=== PATIENT | female | born 1955 | race Caucasian/White ===

== ENCOUNTER 2017-06-11 20:11 | Inpatient (IN) | payer BC, OTHER ==
[~2017-06-11] VITALS: Ht 152.4 cm; Wt 76.9 kg
[2017-06-11] VITALS (11 sets, daily range): BP systolic 133–223; BP diastolic 67–141; PULSE 55–75; RESP 16–20; TEMP 97.8; O2SAT 97–100
[~2017-06-11 20:11] MED LIST: BUPR-86 PO; CHOL1CAP6 PO; DICL75 PO; DOXY100T PO; [UNRECOGNIZED DRUG - CODE] PO
[2017-06-11] MEDS ORDERED: IOHEXOL 350 MG/ML 10 ML VIAL (for RAD DIAG) IVCONTRAST ONE (20:12)
[2017-06-11] MEDS ORDERED: BUPR100T4 PO (20:45)
[2017-06-11] MEDS ORDERED: fish oil PO (20:45)
[2017-06-11] MEDS ORDERED: VITA100064 PO (20:45)
[2017-06-11] MEDS ORDERED: SPIR25TA PO (20:45)
[2017-06-11] MEDS ORDERED: ALUMINUM/MAGNESIUM/SIMETH 30 ML CUP PO ONE (21:00)
[2017-06-11] MEDS ORDERED: SODIUM CHLORIDE 0.9% FLUSH 10 ML FLUSH IVF PRN (21:00)
[2017-06-11] MEDS ORDERED: LIDOCAINE VISCOUS 2% SOLN 15 ML UDC SWISH-SWAL ONE (21:00)
[2017-06-11 21:23] LABS: AUTOMATED NEUTROPHIL # 4.8 TH/MM3 (1.8-7.7); BASOPHIL # 0.1 TH/MM3 (0-0.2); BASOPHIL % 0.5 % (0.0-2.0); EOSINOPHIL # 0.3 TH/MM3 (0-0.4); EOSINOPHIL % 2.8 % (0.0-4.0); HEMATOCRIT 36.9 % (35.0-46.0); HEMOGLOBIN 12.7 GM/DL (11.6-15.3); LYMPH % 39.9 % (9.0-44.0); LYMPHOCYTE # 4.1 TH/MM3 (1.0-4.8); MEAN CELL VOLUME 92.8 FL (80.0-100.0); MEAN CORPUSCULAR HEMOGLOBIN 31.9 PG (27.0-34.0); MEAN CORPUSCULAR HGB CONC 34.3 % (32.0-36.0); MEAN PLATELET VOLUME 7.6 FL (7.0-11.0); MONO % 10.1 % (0.0-8.0); NEUT % 46.7 % (16.0-70.0); PLATELET COUNT 298 TH/MM3 (150-450); RED BLOOD COUNT 3.97 MIL/MM3 (4.00-5.30); WHITE BLOOD COUNT 10.3 TH/MM3 (4.0-11.0)
--- NOTE | 2017-06-11 21:25 | RADRPT ---
EXAM DATE/TIME: 06/11/2017 21:06 [facility] COMPARISON: No previous studies available for comparison. INDICATIONS : Chest pain. MEDICAL HISTORY : None. SURGICAL HISTORY : None. ENCOUNTER: Initial ACUITY: 1 day PAIN SCORE: 6/10 LOCATION: Bilateral chest FINDINGS: A single view of the chest demonstrates the lungs to be symmetrically aerated without evidence of mas s, infiltrate or effusion. The cardiomediastinal contours are unremarkable. Osseous structures are intact. CONCLUSION: No acute disease. Sergey Reis MD on June 11, 2017 at 21:22 Board Certified Radiologist. This report was verified electronically.
[2017-06-11 21:40] LABS: ALT (GPT) 24 U/L (10-53); AST (GOT) 21 U/L (15-37); BLOOD UREA NITROGEN 18 MG/DL (7-18); CALCIUM 8.8 MG/DL (8.5-10.1); CHLORIDE 106 MEQ/L (98-107); CREATININE 1.12 MG/DL (0.50-1.00); GLOMERULAR FILTRATION RATE 50 ML/MIN (>89); GLUCOSE,RANDOM 100 MG/DL (74-106); LIPASE 210 U/L (73-393); SODIUM (NA) 138 MEQ/L (136-145)
[2017-06-11 21:44] LABS: ALKALINE PHOSPHATASE 93 U/L (45-117); TOTAL BILIRUBIN ADULT 0.2 MG/DL (0.2-1.0); TOTAL PROTEIN 7.4 GM/DL (6.4-8.2); TROPONIN I 0.18 NG/ML (0.02-0.05)
[2017-06-11 21:50] LABS: INTERNATIONAL NORMALIZED RATIO 1.1 RATIO; PROTHROMBIN TIME - PATIENT 10.7 SEC (9.8-11.6)
[2017-06-11] MEDS ORDERED: LORazepam 2 MG/ML VIAL IV PUSH ONE (22:15)
[2017-06-11] MEDS ORDERED: LABETALOL HCL 100 MG/20 ML VIAL IV PUSH ONE (22:15)
[2017-06-11] MEDS ORDERED: ONDANSETRON HCL 4 MG/2 ML VIAL IV PUSH ONE ×2 (22:15→23:30)
[2017-06-11] MEDS ORDERED: MORPHINE SULFATE 2 MG/ML INJ IV PUSH ONE (22:15)
[2017-06-11 22:30] LABS: D-DIMER 0.39 MG/L FEU (0.00-0.50)
[2017-06-11] MEDS ORDERED: NITROGLYCERIN 2% OINT 1 GM PACKET TOPICAL ONE (22:30)
[2017-06-11] MEDS ORDERED: PANTOPRAZOLE SODIUM 40 MG VIAL IV PUSH ONE (23:45)
[2017-06-12] VITALS (21 sets, daily range): BP systolic 90–136; BP diastolic 51–77; PULSE 50–77; RESP 18–20; TEMP 98.3–98.7; O2SAT 97–99
--- NOTE | 2017-06-12 00:31 | RADRPT ---
EXAM DATE/TIME: 06/11/2017 23:38 [facility] COMPARISON: No previous studies available for comparison. INDICATIONS : Chest pain with vomiting. IV CONTRAST: 95 cc Omnipaque 350 (iohexol) IV RADIATION DOSE: 16.98 CTDIvol (mGy) MEDICAL HISTORY : Gastroesophageal reflux disease. SURGICAL HISTORY : section. ENCOUNTER: Initial ACUITY: 1 day PAIN SCALE: 4/10 LOCATION: lower chest abdomen TECHNIQUE: Volumetric scanning was performed using a multi-row detector CT scanner. The data was post processed with a variety of visualization algorithms including full volume maximum intensity projection, multi -planar sliding thin slab reformation, curved planar reformation, and surface rendering techniques. Using automated exposure control and adjustment of the mA and/or kV according to patient size, radiat ion dose was kept as low as reasonably achievable to obtain optimal diagnostic quality images. DICOM format image data is available electronically for review and comparison. FINDINGS: LUNGS: Minimal bibasilar groundglass opacities, likely atelectasis. No concerning pulmonary nodule is visua lized. No pleural fluid is present. MEDIASTINUM: No abnormally enlarged lymph nodes by CT criteria. Coronary artery calcifications. Heart is otherwise unremarkable without pericardial effusion. No axillary or hilar abnormalities are identified. Pulmon shay arteries are visualized to the proximal segmental level without evidence for intraluminal filling defect ABDOMEN: The liver and spleen are free of focal defects. Multiple gallstones in the gallbladder which otherwis e appears unremarkable by CT. The pancreas demonstrate no abnormality. The adrenal glands are normal. The kidneys demonstrate no evidence of solid renal mass or hydronephrosis. No free fluid or abdomina l masses are identified. No para-aortic adenopathy is seen. Small fat containing periumbilical and ab dominal wall hernia. PELVIS: No evidence of free fluid or pelvic mass. No abnormally enlarged inguinal or retroperitoneal lymph no jonh are present. The bladder is unremarkable. THORACIC AORTA: The thoracic aortic root is normal. Bovine type two vessel arch anatomy. There is no evidence of aneu rysm or dissection. ABDOMINAL AORTA: The aorta is normal in caliber without aneurysm or dissection. The renal arteries are patent bilater ally. There are duplicated right-sided renal arteries. The proximal celiac and superior mesenteric a rteries are patent and normal in diameter. PELVIC VESSELS: The internal iliac and external iliac vessels are patent without aneurysm or stenosis. CONCLUSION: 1. Normal aorta without evidence for aneurysm or dissection. 2. No evidence of pulmonary embolism to the proximal segmental level. 3. Minimal bibasilar groundglass opacities, likely atelectasis. 4. Coronary calcifications. 5. Cholelithiasis. 6. Small fat containing anterior abdominal periumbilical hernia. Patrick Montiel MD on June 12, 2017 at 0:24 Board Certified Radiologist. This report was verified electronically.
--- NOTE | 2017-06-12 00:40 | HHI.HP ---
HPI Service Critical Care Medicine Primary Care Physician Ela Beverly MD Admission Diagnosis Acute [place], hemoptysis Diagnosis: Travel History International Travel<30 Days: No Contact w/Intl Traveler <30 Da: No Traveled to Known Affected Are: No History of Present Illness 62-year-old female with no history significant of coronary artery disease presents with chest pain, per patient initially the elephant was sitting on her chest without radiation, later in the emergency department where she felt improving, she developed sudden onset of crushing chest pain radiating to her shoulders, she became diaphoretic, pale and hypotensive. The EKG shows diffuse ST elevations and the thermal cutter hand test conductor was notified for STEMI alert. She was treated with morphine, Ativan, nitroglycerin, beta mary ellen with improvement of her symptoms. However shortly after she vomited about half cup of fresh bright red blood. The thermal cutter hand on-call canceled a STEMI alert and patient is admitted to ICU with conservative management. Review of Systems Constitutional: COMPLAINS OF: Diaphoretic episodes, DENIES: Fatigue, Fever, Weight gain, Weight loss, Chills, Dizziness, Change in appetite, Night Sweats Endocrine: DENIES: Abnorml menstrual pattern, Heat/cold intolerance, Polydipsia , Polyuria, Polyphagia Eyes: DENIES: Blurred vision, Diplopia, Eye inflammation, Eye pain, Vision loss , Photosensitivity, Double Vision Ears, nose, mouth, throat: DENIES: Tinnitus, Hearing loss, Vertigo, Nasal discharge, Oral lesions, Throat pain, Hoarseness, Ear Pain, Running Nose, Epistaxis, Sinus Pain, Toothache, Odynophagia Respiratory: COMPLAINS OF: Shortness of breath, DENIES: Apneas, Cough, Snoring , Wheezing, Hemoptysis, Sputum production Cardiovascular: COMPLAINS OF: Chest pain, DENIES: Palpitations, Syncope, Dyspnea on Exertion, PND, Lower Extremity Edema, Orthopnea, Claudication Gastrointestinal: DENIES: Abdominal pain, Black stools, Bloody stools, Constipation, Diarrhea, Nausea, Vomiting, Difficulty Swallowing, Anorexia Genitourinary: DENIES: Abnormal vaginal bleeding, Dysmenorrhea, Dyspareunia, Sexual dysfunction, Urinary frequency, Urinary incontinence, Urgency, Hematuria , Dysuria, Nocturia, Vaginal discharge Musculoskeletal: DENIES: Joint pain, Muscle aches, Stiffness, Joint Swelling, Back pain, Neck pain Integumentary: DENIES: Abnormal pigmentation, Pruritus, Rash, Nail changes, Breast masses, Breast skin changes, Nipple discharge Hematologic/lymphatic: DENIES: Bruising, Lymphadenopathy Immunologic/allergic: DENIES: Eczema, Urticaria Neurologic: DENIES: Abnormal gait, Headache, Localized weakness, Paresthesias, Seizures, Speech Problems, Tremor, Poor Balance Psychiatric: DENIES: Anxiety, Confusion, Mood changes, Depression, Hallucinations, Agitation, Suicidal Ideation, Homicidal Ideation, Delusions Past Family Social History Allergies: Coded Allergies: neomycin (Unverified Allergy, Intermediate, RASH, 01/04/17) Past Medical History Depressions/anxiety Past Surgical History Bilateral carpal tunnel syndrome release Arthroscopic surgery of the left knee Tonsillectomy Urethral dilation Colonoscopy 2 Reported Medications Reported Meds & Active Scripts Active Reported [fish oil] 1 Cap PO DAILY Vitamin D3 (Cholecalciferol) 1,000 Unit Tab 1,000 Units PO DAILY Bupropion HCl 100 Mg Tab 150 Mg PO BID Spironolactone 25 Mg Tab 25 Mg PO BIDPC Active Ordered Medications Current Medications Medications (Trade) Dose Ordered Sig/Carlitos Route PRN Reason Start Time Stop Time Status Last Admin Dose Admin Bupropion HCl (Wellbutrin Sr) 150 mg BID PO 06/12/17 09:00 Cholecalciferol (Vitamin D3) 1,000 units DAILY PO 06/12/17 09:00 Spironolactone (Aldactone) 25 mg BIDPC PO 06/12/17 09:00 Sodium Chloride 1,000 ml @ 124 mls/hr Q8H4M IV 06/12/17 00:34 06/12/17 01:55 Sodium Chloride (NS Flush) 2 ml UNSCH PRN IV FLUSH FLUSH AFTER USING IV ACCESS 06/12/17 00:45 Sodium Chloride (NS Flush) 2 ml BID IV FLUSH 06/12/17 09:00 Acetaminophen (Tylenol) 650 mg Q6H PRN PO PAIN 1-5 AND/OR FEVER >101F 06/12/17 00:45 Morphine Sulfate (Morphine Inj) 2 mg Q2H PRN IV PUSH PAIN SCALE 6 TO 10 06/12/17 00:45 Pantoprazole Sodium (Protonix Inj) 40 mg Q12H IV PUSH 06/12/17 01:00 Lorazepam (Ativan Inj) 1 mg Q1H PRN IV PUSH Agitation/Sedation 06/12/17 00:45 06/12/17 03:17 Ondansetron HCl (Zofran Inj) 4 mg Q6H PRN IV PUSH NAUSEA OR VOMITING 06/12/17 00:45 06/12/17 04:09 Zolpidem Tartrate (Ambien) 5 mg HS PRN PO INSOMNIA 06/12/17 00:45 Albuterol/ Ipratropium (Duoneb Neb) 1 ampule Q2HR NEB PRN INH WHEEZING 06/12/17 00:45 Miscellaneous Information 1 Q361D XX 06/12/17 00:45 Chlorhexidine Gluconate (Chlorhexidine 2% Cloth) 3 pack Taper DAILY@04 TOP 06/12/17 04:00 06/08/18 03:59 06/12/17 04:00 Chlorhexidine Gluconate (Chlorhexidine 2% Cloth) 3 pack UNSCH PRN TOP HYGIENIC CARE 06/12/17 00:45 Senna/Docusate Sodium (G[place]-Colace) 1 tab BID PO 06/12/17 09:00 Magnesium Hydroxide (Milk Of Magnesia Liq) 30 ml Q12H PRN PO Mild constipation 06/12/17 00:45 Sennosides (Senokot) 17.2 mg Q12H PRN PO Moderate constipation 06/12/17 00:45 Bisacodyl (Dulcolax Supp) 10 mg DAILY PRN RECTAL SEVERE CONSITIPATION 06/12/17 00:45 Lactulose (Lactulose Liq) 30 ml DAILY PRN PO SEVERE CONSITIPATION 06/12/17 00:45 Metoprolol Tartrate (Lopressor Inj) 2.5 mg Q6H IV PUSH 06/12/17 00:45 06/12/17 01:55 Atorvastatin Calcium (Lipitor) 80 mg DAILY PO 06/12/17 09:00 Labetalol HCl (Trandate Inj) 10 mg Q4H PRN IV PUSH SBP>150, DBP>90 06/12/17 00:45 Pantoprazole Sodium 80 mg/ Sodium Chloride 100 ml @ 10 mls/hr CONTINUOUS IV 06/12/17 02:15 06/12/17 03:17 Family History No family history significant of malignancy Social History Quit smoking 30 years ago, denies alcohol or illicit drug abuse Physical Exam Vital Signs Vital Signs Date Time Temp Pulse Resp B/P (MAP) Pulse Ox O2 Delivery O2 Flow Rate FiO2 06/11/17 23:56 61 20 133/88 (103) 97 Room Air 06/11/17 22:51 55 141/76 (97) 97 Room Air 06/11/17 22:32 61 151/76 (101) 98 Room Air 06/11/17 22:28 56 145/71 (95) 99 06/11/17 22:19 56 147/67 (93) 97 06/11/17 22:13 60 149/70 (96) 06/11/17 22:00 223/141 (168) 06/11/17 21:49 70 20 176/81 (112) 100 Room Air 06/11/17 21:48 100 Room Air 06/11/17 21:48 100 Room Air 06/11/17 20:46 66 18 147/72 (97) 100 Room Air 06/11/17 20:38 Room Air 06/11/17 20:16 97.8 75 16 174/88 (116) 99 Room Air Physical Exam GENERAL: Well-nourished, well-developed patient. SKIN: Warm and dry. HEAD: Normocephalic. EYES: No scleral icterus. No injection or drainage. NECK: Supple, trachea midline. No JVD or lymphadenopathy. CARDIOVASCULAR: Regular rate and rhythm without murmurs, gallops, or rubs. RESPIRATORY: Breath sounds equal bilaterally. No accessory muscle use. GASTROINTESTINAL: Abdomen soft, non-tender, nondistended. MUSCULOSKELETAL: No cyanosis, or edema. BACK: Nontender without obvious deformity. NEURO EXAM: GCS: 15 Mental Status: The patient is alert and oriented to person, place, and time with normal speech. Laboratory Laboratory Tests Test 06/11/17 20:50 06/11/17 23:59 White Blood Count 10.3 Red Blood Count 3.97 Hemoglobin 12.7 Hematocrit 36.9 Mean Corpuscular Volume 92.8 Mean Corpuscular Hemoglobin 31.9 Mean Corpuscular Hemoglobin Concent 34.3 Red Cell Distribution Width 14.0 Platelet Count 298 Mean Platelet Volume 7.6 Neutrophils (%) (Auto) 46.7 Lymphocytes (%) (Auto) 39.9 Monocytes (%) (Auto) 10.1 Eosinophils (%) (Auto) 2.8 Basophils (%) (Auto) 0.5 Neutrophils # (Auto) 4.8 Lymphocytes # (Auto) 4.1 Monocytes # (Auto) 1.0 Eosinophils # (Auto) 0.3 Basophils # (Auto) 0.1 CBC Comment DIFF FINAL Differential Comment Prothrombin Time 10.7 Prothromb Time International Ratio 1.1 Activated Partial Thromboplast Time 28.2 D-Dimer Quantitative (PE/DVT) 0.39 Blood Urea Nitrogen 18 Creatinine 1.12 Random Glucose 100 Total Protein 7.4 Albumin 4.0 Calcium Level 8.8 Magnesium Level 2.0 Alkaline Phosphatase 93 Aspartate Amino Transf (AST/SGOT) 21 Alanine Aminotransferase (ALT/SGPT) 24 Total Bilirubin 0.2 Sodium Level 138 Potassium Level 3.7 Chloride Level 106 Carbon Dioxide Level 25.0 Anion Gap 7 Estimat Glomerular Filtration Rate 50 Total Creatine Kinase 155 Creatine Kinase MB 1.9 Troponin I 0.18 B-Type Natriuretic Peptide 7 Lipase 210 Result Diagram: 06/11/17204906/11/172049 Imaging Last 24 hours Impressions Chest X-Ray 06/11/172046 Signed Impressions: Service Date/Time: Sunday, June 11, 2017 21:06 - CONCLUSION: No acute disease. Sergey Reis MD Septic Shock Reassessment Septic shock perfusion: reassessment completed Caprini VTE Risk Assessment Caprini VTE Risk Assessment: Mod/High Risk (score >= 2) Caprini Risk Assessment Model Point Value = 1 Point Value = 2 Point Value = 3 Point Value = 5 Age 41-60 Minor surgery BMI > 25 kg/m2 Swollen legs Varicose veins or History of unexplained or recurrent spontaneous Oral contraceptives or hormone replacement Sepsis (< 1 month) Serious lung disease, including pneumonia (< 1 month) Abnormal pulmonary function Acute myocardial infarction Congestive heart failure (< 1 month) History of inflammatory bowel disease Medical patient at bed rest Age 61-74 Arthroscopic surgery Major open surgery (> 45 min) Laparoscopic surgery (> 45 min) Malignancy Confined to bed (> 72 hours) Immobilizing plaster cast Central venous access Age >= 75 History of VTE Family history of VTE Factor V Leiden Prothrombin 49826D Lupus anticoagulant Anticardiolipin antibodies Elevated serum homocysteine Heparin-induced thrombocytopenia Other congenital or acquired thrombophilia Stroke (< 1 month) Elective arthroplasty Hip, pelvis, or leg fracture Acute spinal cord injury (< 1 month) Prophylaxis Regimen Total Risk Factor Score Risk Level Prophylaxis Regimen 0-1 Low Early ambulation 2 Moderate Order ONE of the following: *Sequential Compression Device (SCD) *Heparin 5000 units SQ BID 3-4 Higher Order ONE of the following medications: *Heparin 5000 units SQ TID *Enoxaparin/Lovenox 40 mg SQ daily (WT < 150 kg, CrCl > 30 mL/min) *Enoxaparin/Lovenox 30 mg SQ daily (WT < 150 kg, CrCl > 10-29 mL/min) *Enoxaparin/Lovenox 30 mg SQ BID (WT < 150 kg, CrCl > 30 mL/min) AND/OR *Sequential Compression Device (SCD) 5 or more Highest Order ONE of the following medications: *Heparin 5000 units SQ TID (Preferred with Epidurals) *Enoxaparin/Lovenox 40 mg SQ daily (WT < 150 kg, CrCl > 30 mL/min) *Enoxaparin/Lovenox 30 mg SQ daily (WT < 150 kg, CrCl > 10-29 mL/min) *Enoxaparin/Lovenox 30 mg SQ BID (WT < 150 kg, CrCl > 30 mL/min) AND *Sequential Compression Device (SCD) Assessment and Plan Assessment and Plan Acute coronary syndrome - Stat cardiology consult - Lopressor IV every 6 hours - Atorvastatin - Hold anticoagulation due to hematemesis - 2-D echo - Series of troponins and EKGs - Further management per cardiology Hematemesis - Protonix IV twice a day - GI consultation Depression/anxiety - Bupropion - Ativan when necessary DVT GI prophylaxis - Teds SCDs - Pharmacological DVT prophylaxis per GI clearance - Protonix IV twice a day Critical Care: The total critical care time was 35 minutes. Time to perform other separately billable procedures was not included in the critical care time. Marty Alonso MD Jun 12, 2017 12:40 am
[2017-06-12] MEDS ORDERED: CHLORHEXIDINE GLUCONATE 2 % 1 PACK (2 CLOTHS) TOP PRN (00:45)
[2017-06-12] MEDS ORDERED: LACTULOSE SYRUP 20 GM/30 ML CUP PO PRN (00:45)
[2017-06-12] MEDS ORDERED: ONDANSETRON HCL 4 MG/2 ML VIAL IV PUSH PRN (00:45)
[2017-06-12] MEDS ORDERED: MISCELLANEOUS NURSING INFORMATION XX SCH (00:45)
[2017-06-12] MEDS ORDERED: BISACODYL 10 MG SUPP RECTAL PRN (00:45)
[2017-06-12] MEDS ORDERED: LABETALOL HCL 100 MG/20 ML VIAL IV PUSH PRN (00:45)
[2017-06-12] MEDS ORDERED: RESP: ALBUTEROL 2.5 MG/IPRATROPIUM 0.5 MG NEB (PRN) INH (00:45)
[2017-06-12] MEDS ORDERED: SODIUM CHLORIDE 0.9% FLUSH 10 ML FLUSH IV FLUSH PRN (00:45)
[2017-06-12] MEDS ORDERED: MAGNESIUM HYDROXIDE SUSP 30 ML CUP PO PRN (00:45)
[2017-06-12] MEDS ORDERED: LORazepam 2 MG/ML VIAL IV PUSH PRN (00:45)
[2017-06-12] MEDS ORDERED: MORPHINE SULFATE 4 MG/ML INJ IV PUSH PRN (00:45)
[2017-06-12] MEDS ORDERED: ZOLPIDEM TARTRATE 5 MG TAB PO PRN (00:45)
[2017-06-12] MEDS ORDERED: SENNOSIDES 8.6 MG TAB PO PRN (00:45)
[2017-06-12] MEDS ORDERED: PANTOPRAZOLE SODIUM 40 MG VIAL IV PUSH SCH (01:00)
[2017-06-12] MEDS: SODIUM CHLOR 0.9% 1000 ML INJ 1,000 ML IV SCH ×3 (01:55→16:42)
[2017-06-12] MEDS: METOPROLOL TARTRATE 5 MG/5 ML VIAL IV PUSH SCH ×2 (01:55→05:50)
[2017-06-12] MEDS ORDERED: PANTOPRAZOLE INJ 80 MG in SODIUM CHLORIDE 0.9% INJ 35 ML IV ONE (02:15)
[2017-06-12] MEDS ORDERED: PANTOPRAZOLE INJ 80 MG in SODIUM CHLORIDE 0.9% INJ 100 ML IV SCH (02:15)
[2017-06-12] MEDS: CHLORHEXIDINE GLUCONATE 2 % 1 PACK (2 CLOTHS) TOP SCH (04:00)
[2017-06-12] MEDS ORDERED: PROCHLORPERAZINE INJ 10 MG/2 ML VIAL ONE (05:47)
[2017-06-12] MEDS ORDERED: PROCHLORPERAZINE INJ 10 MG/2 ML VIAL IV PRN (06:15)
[2017-06-12] MEDS: SODIUM CHLORIDE 0.9% FLUSH 10 ML FLUSH IV FLUSH SCH ×2 (09:00→21:50)
[2017-06-12] MEDS ORDERED: FISH OIL PO SCH (09:00)
[2017-06-12] MEDS: ATORVASTATIN 80 MG TAB PO SCH (09:22)
[2017-06-12] MEDS: buPROPion HCL 150 MG SUSTAINED RELEASE TAB PO SCH ×2 (09:22→21:50)
[2017-06-12] MEDS: CHOLECALCIFEROL (VIT D3) 1000 UNIT TAB PO SCH (09:22)
[2017-06-12] MEDS: SPIRONOLACTONE 25 MG TAB PO SCH ×2 (09:22→18:00)
[2017-06-12] MEDS: DOCUSATE SODIUM 50 MG/SENNA 8.6 MG TAB PO SCH ×2 (09:22→21:00)
--- NOTE | 2017-06-12 10:32 | MB ---
cc: RICKY CAMPBELL MD DATE OF CONSULTATION: 06/12/2017 REASON FOR CONSULTATION Elevated troponin. HISTORY OF PRESENT ILLNESS The patient is a very pleasant 62-year-old woman with no prior cardiac history, who presented with chest discomfort which became much worse while she was in the hospital including sensation of an elephant sitting on her chest. A STEMI alert was called but she began having hemoptysis so the STEMI alert was cancelled. She is currently symptom free, denying any residual chest pain, shortness of breath, lightheadedness or dizziness. PAST MEDICAL HISTORY Depression. CURRENT MEDICATIONS 1. Wellbutrin. 2. Aldactone 25 mg b.i.d. 3. Lipitor 80 mg daily. ALLERGIES NEOMYCIN. PHYSICAL EXAMINATION VITAL SIGNS: Pulse 58, respiratory rate 20, BP 94/61, sating 98%. GENERAL: A pleasant woman in no distress. NECK: No JVD. LUNGS: Clear to auscultation bilaterally. CARDIOVASCULAR: Regular rate and rhythm. No murmurs appreciated. ABDOMEN: Benign. EXTREMITIES: No edema. LABORATORY DATA Troponin 0.87. Sodium 138, potassium 3.7, chloride 106, bicarb 25, BUN 18, creatinine 1.12, glucose 100, white count 10.3, hemoglobin 12.7, platelets 298. IMAGING STUDIES CTA showed no evidence of dissection. Chest x-ray showed no acute disease. EKG Shows sinus rhythm with lateral ST changes, possible slight inferior ST elevations, consistent possibly with inferior/ posterior infarct. IMPRESSION 1. Elevated troponin. The patient does appear to be having an acute infarct in the inferior/posterior region, complicating the matter is her coughing/vomiting, apparently a cup and a half of bright red blood which makes any intervention extremely high risk for bleeding. At the moment she is symptom free and she is being medically treated for presumptive coronary disease. GI has been consulted and I will further discuss the situation with interventional cardiology as she will quite likely need cardiac catheterization at some point. Further recommendations will be based on her clinical course. Thank you again for the opportunity to participate in this patient's care. Ricky Campbell MD OSMANY/TLL /9:38 AM /10:05 AM
[2017-06-12] MEDS ORDERED: FISH500C PO (11:14)
[2017-06-12] MEDS: PANTOPRAZOLE SODIUM 40 MG VIAL IV PUSH SCH (13:00)
--- NOTE | 2017-06-12 13:04 | EKG ---
Date Performed: 06/11/2017 Time Performed: 22:13:34 PTAGE: 62 years EKG: Sinus rhythm SEPTAL MYOCARDIAL INFARCTION ABNORMAL ECG Compared to PREVIOUS TRACING , there has been interval slight ST elevation inferiorly and posteriorly . PREVIOUS TRACIN06/11/2017 20.26.38 DOCTOR: Ricky Campbell Interpretating Date/Time 06/12/2017 13:04:15
--- NOTE | 2017-06-12 13:04 | EKG ---
Date Performed: 06/11/2017 Time Performed: 20:26:38 PTAGE: 62 years EKG: Sinus rhythm NORMAL ECG PREVIOUS TRACING : 05/06/2015 10.44.15 Since previous tracing, no significant change noted DOCTOR: Ricky Campbell Interpretating Date/Time 06/12/2017 13:02:48
--- NOTE | 2017-06-12 13:08 | EKG ---
Date Performed: 06/11/2017 Time Performed: 23:16:27 PTAGE: 62 years EKG: SINUS BRADYCARDIA MODERATE ST DEPRESSION ABNORMAL ECG Compared to PREVIOUS TRACING , there has been further increase in ST elevation inferiorly with depres sions posteriorly. 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 PREVIOUS TRACIN 22.13.34 DOCTOR: Ricky Campbell Interpretating Date/Time 06/12/2017 13:07:22
--- NOTE | 2017-06-12 13:10 | EKG ---
Date Performed: 06/12/2017 Time Performed: 01:55:17 PTAGE: 62 years EKG: Sinus rhythm MODERATE ST DEPRESSION ABNORMAL ECG Similar to last EKG, there is slight inferior ST elevation with depressions in V1 and V2. Likely inferior/posterior acute myocardial infarction. PREVIOUS TRACING : 06/11/2017 23.16.27 DOCTOR: Ricky Campbell Interpretating Date/Time 06/12/2017 13:10:31
--- NOTE | 2017-06-12 13:10 | EKG ---
Date Performed: 06/12/2017 Time Performed: 10:22:19 PTAGE: 62 years EKG: SINUS BRADYCARDIA BORDERLINE ECG Compared to PREVIOUS TRACING , there has been some improvement in the previously seen acute inferior/ posterior ST elevation. PREVIOUS TRACIN06/12/2017 01.55.17 DOCTOR: Ricky Campbell Interpretating Date/Time 06/12/2017 13:09:59
[2017-06-12 14:13] LABS: AUTOMATED NEUTROPHIL # 9.6 TH/MM3 (1.8-7.7); BASOPHIL % 0.1 % (0.0-2.0); EOSINOPHIL % 0.1 % (0.0-4.0); HEMATOCRIT 37.1 % (35.0-46.0); HEMOGLOBIN 12.4 GM/DL (11.6-15.3); LYMPH % 8.5 % (9.0-44.0); MEAN CORPUSCULAR HEMOGLOBIN 31.7 PG (27.0-34.0); MEAN CORPUSCULAR HGB CONC 33.4 % (32.0-36.0); MEAN PLATELET VOLUME 8.3 FL (7.0-11.0); MONO % 5.9 % (0.0-8.0); MONOCYTE # 0.7 TH/MM3 (0-0.9); NEUT % 85.4 % (16.0-70.0); PLATELET COUNT 294 TH/MM3 (150-450); RED BLOOD COUNT 3.91 MIL/MM3 (4.00-5.30); RED CELL DISTRIBUTION WIDTH 14.3 % (11.6-17.2); WHITE BLOOD COUNT 11.2 TH/MM3 (4.0-11.0)
[2017-06-12] MEDS ORDERED: NITROGLYCERIN-D5W 50 MG/250 ML 250 ML IV PRN (14:30)
[2017-06-12] MEDS ORDERED: HEPARIN SODIUM - IV 10,000 UNITS/10 ML VIAL IV PUSH ONE (14:30)
[2017-06-12] MEDS ORDERED: HEPARIN-D5W 25,000 U/250 ML 250 ML IV PRN (14:30)
[2017-06-12 14:31] LABS: BICARBONATE 22.3 MEQ/L (21.0-32.0); CALCIUM 8.2 MG/DL (8.5-10.1); CREATININE 1.08 MG/DL (0.50-1.00)
--- NOTE | 2017-06-12 14:32 | PD.CONS ---
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 Patient states after having the massive episode of bleed, she has been having only small drops of hematemesis. The emesis was described as bright red bleed. Denies melena or hematochezia. She has been having burning abd pain. Currently hgb is 12.4. Patient had previous EGD/colonoscopy about 10 yrs ago. Denies frequent used of NSAIDs, denies alcohol intake or blood thinner at home (Chapincito Heller) PFSH Past Medical History Depressions/anxiety Past Surgical History Bilateral carpal tunnel syndrome release Arthroscopic surgery of the left knee Tonsillectomy Urethral dilation Colonoscopy 2 (Chapincito Heller) Coded Allergies: neomycin (Unverified Allergy, Intermediate, RASH, 01/04/17) Medications Current Medications Medications (Trade) Dose Ordered Sig/Carlitos Route Start Time Stop Time Status Last Admin (Wellbutrin Sr) 150 mg BID PO 06/12/17 09:00 06/12/17 09:22 (Vitamin D3) 1,000 units DAILY PO 06/12/17 09:00 06/12/17 09:22 (Aldactone) 25 mg BIDPC PO 06/12/17 09:00 06/12/17 09:22 Sodium Chloride 1,000 ml @ 124 mls/hr Q8H4M IV 06/12/17 00:34 06/12/17 08:38 (NS Flush) 2 ml UNSCH PRN IV FLUSH 06/12/17 00:45 (NS Flush) 2 ml BID IV FLUSH 06/12/17 09:00 06/12/17 09:00 (Tylenol) 650 mg Q6H PRN PO 06/12/17 00:45 (Morphine Inj) 2 mg Q2H PRN IV PUSH 06/12/17 00:45 06/12/17 14:05 (Ativan Inj) 1 mg Q1H PRN IV PUSH 06/12/17 00:45 06/12/17 03:17 (Zofran Inj) 4 mg Q6H PRN IV PUSH 06/12/17 00:45 06/12/17 04:09 (Ambien) 5 mg HS PRN PO 06/12/17 00:45 (Duoneb Neb) 1 ampule Q2HR NEB PRN INH 06/12/17 00:45 Miscellaneous Information 1 Q361D XX 06/12/17 00:45 (Chlorhexidine 2% Cloth) 3 pack Taper DAILY@04 TOP 06/12/17 04:00 06/08/18 03:59 06/12/17 04:00 (Chlorhexidine 2% Cloth) 3 pack UNSCH PRN TOP 06/12/17 00:45 ([place]-Colace) 1 tab BID PO 06/12/17 09:00 06/12/17 09:22 (Milk Of Magnesia Liq) 30 ml Q12H PRN PO 06/12/17 00:45 (Senokot) 17.2 mg Q12H PRN PO 06/12/17 00:45 (Dulcolax Supp) 10 mg DAILY PRN RECTAL 06/12/17 00:45 (Lactulose Liq) 30 ml DAILY PRN PO 06/12/17 00:45 (Lipitor) 80 mg DAILY PO 06/12/17 09:00 06/12/17 09:22 (Trandate Inj) 10 mg Q4H PRN IV PUSH 06/12/17 00:45 (Compazine Inj) 5 mg Q6H PRN IV 06/12/17 06:15 (Protonix Inj) 40 mg Q12H IV PUSH 06/12/17 13:00 (Heparin Inj) 4,000 units ONCE ONCE IV PUSH 06/12/17 14:15 06/12/17 14:16 UNV (Heparin Inj) 5,000 units UNSCH PRN IV PUSH 06/12/17 20:15 UNV (Heparin Inj) 2,500 units UNSCH PRN IV PUSH 06/12/17 20:15 UNV Heparin Sodium/ Dextrose 250 ml @ 0 mls/hr TITRATE PRN IV 06/12/17 14:15 UNV Nitroglycerin/ Dextrose 250 ml TITRATE PRN IV 06/12/17 14:15 UNV Family History No family history significant of malignancy Social History Quit smoking 30 years ago, denies alcohol or illicit drug abuse (Chapincito Heller) Review of Systems Constitutional: COMPLAINS OF: Diaphoretic episodes, Fatigue, DENIES: Weight loss Endocrine: DENIES: Polyuria Eyes: DENIES: Double Vision Respiratory: COMPLAINS OF: Hemoptysis Gastrointestinal: COMPLAINS OF: Abdominal pain, Nausea, Vomiting, Hematemesis, DENIES: Black stools, Bloody stools, Constipation, Diarrhea, Difficulty Swallowing, Anorexia, Odynophagia, Swelling of Abdomen Genitourinary: DENIES: Hematuria Integumentary: DENIES: Abnormal pigmentation, Jaundice Hematologic/lymphatic: DENIES: Bruising Immunologic/allergic: DENIES: Eczema Neurologic: DENIES: Abnormal gait Psychiatric: COMPLAINS OF: Anxiety (Chapincito Heller) GI Exam Vitals I&O Vital Signs Date Time Temp Pulse Resp B/P (MAP) Pulse Ox O2 Delivery O2 Flow Rate FiO2 06/12/17 11:00 98.3 77 20 90/51 (64) 97 06/12/17 10:00 58 06/12/17 08:10 98 06/12/17 08:00 58 06/12/17 07:58 50 06/12/17 07:57 98.7 50 20 94/61 (72) 97 06/12/17 06:00 58 06/12/17 04:00 54 06/12/17 03:32 98.7 62 20 118/67 (84) 97 06/12/17 02:42 06/12/17 02:28 63 18 115/70 (85) 97 Room Air 06/12/17 01:42 60 18 121/73 (89) 99 Room Air 06/12/17 01:38 97 06/12/17 00:40 60 18 136/77 (96) 97 Room Air 06/11/17 23:56 61 20 133/88 (103) 97 Room Air 06/11/17 22:51 55 141/76 (97) 97 Room Air 06/11/17 22:32 61 151/76 (101) 98 Room Air 06/11/17 22:28 56 145/71 (95) 99 06/11/17 22:19 56 147/67 (93) 97 06/11/17 22:13 60 149/70 (96) 06/11/17 22:00 223/141 (168) 06/11/17 21:49 70 20 176/81 (112) 100 Room Air 06/11/17 21:48 100 Room Air 06/11/17 21:48 100 Room Air 06/11/17 20:46 66 18 147/72 (97) 100 Room Air 06/11/17 20:38 Room Air 06/11/17 20:16 97.8 75 16 174/88 (116) 99 Room Air I/O 06/11/17 06/11/17 06/11/17 06/12/17 06/12/17 06/12/17 07:00 15:00 23:00 07:00 15:00 23:00 Intake Total 496 ml Output Total 0 ml Balance 496 ml Intake IV Total 496 ml Output Urine Total 0 ml # Bowel Movements 0 Imaging Last Impressions Chest X-Ray 06/11/172046 Signed Impressions: Service Date/Time: Sunday, June 11, 2017 21:06 - CONCLUSION: No acute disease. Sergey Reis MD Aorta CTA 06/11/17 0000 Signed Impressions: Service Date/Time: Sunday, June 11, 2017 23:38 - CONCLUSION: 1. Normal aorta without evidence for aneurysm or dissection. 2. No evidence of pulmonary embolism to the proximal segmental level. 3. Minimal bibasilar groundglass opacities, likely atelectasis. 4. Coronary calcifications. 5. Cholelithiasis. 6. Small fat containing anterior abdominal periumbilical hernia. Patrick Montiel MD Laboratory Test 06/11/17 20:50 06/11/17 23:59 06/12/17 03:11 06/12/17 05:35 White Blood Count 10.3 TH/MM3 Red Blood Count 3.97 MIL/MM3 Hemoglobin 12.7 GM/DL Hematocrit 36.9 % Mean Corpuscular Volume 92.8 FL Mean Corpuscular Hemoglobin 31.9 PG Mean Corpuscular Hemoglobin Concent 34.3 % Red Cell Distribution Width 14.0 % Platelet Count 298 TH/MM3 Mean Platelet Volume 7.6 FL Neutrophils (%) (Auto) 46.7 % Lymphocytes (%) (Auto) 39.9 % Monocytes (%) (Auto) 10.1 % Eosinophils (%) (Auto) 2.8 % Basophils (%) (Auto) 0.5 % Neutrophils # (Auto) 4.8 TH/MM3 Lymphocytes # (Auto) 4.1 TH/MM3 Monocytes # (Auto) 1.0 TH/MM3 Eosinophils # (Auto) 0.3 TH/MM3 Basophils # (Auto) 0.1 TH/MM3 CBC Comment DIFF FINAL Differential Comment Prothrombin Time 10.7 SEC Prothromb Time International Ratio 1.1 RATIO Activated Partial Thromboplast Time 28.2 SEC D-Dimer Quantitative (PE/DVT) 0.39 MG/L FEU Blood Urea Nitrogen 18 MG/DL Creatinine 1.12 MG/DL Random Glucose 100 MG/DL Total Protein 7.4 GM/DL Albumin 4.0 GM/DL Calcium Level 8.8 MG/DL Magnesium Level 2.0 MG/DL Alkaline Phosphatase 93 U/L Aspartate Amino Transf (AST/SGOT) 21 U/L Alanine Aminotransferase (ALT/SGPT) 24 U/L Total Bilirubin 0.2 MG/DL Sodium Level 138 MEQ/L Potassium Level 3.7 MEQ/L Chloride Level 106 MEQ/L Carbon Dioxide Level 25.0 MEQ/L Anion Gap 7 MEQ/L Estimat Glomerular Filtration Rate 50 ML/MIN Total Creatine Kinase 155 U/L Creatine Kinase MB 1.9 NG/ML Troponin I 0.18 NG/ML 0.09 NG/ML 0.87 NG/ML B-Type Natriuretic Peptide 7 PG/ML Lipase 210 U/L Nasal Screen MRSA (PCR) MRSA NOT DETECTED Test 06/12/17 13:15 White Blood Count 11.2 TH/MM3 Red Blood Count 3.91 MIL/MM3 Hemoglobin 12.4 GM/DL Hematocrit 37.1 % Mean Corpuscular Volume 95.0 FL Mean Corpuscular Hemoglobin 31.7 PG Mean Corpuscular Hemoglobin Concent 33.4 % Red Cell Distribution Width 14.3 % Platelet Count 294 TH/MM3 Mean Platelet Volume 8.3 FL Neutrophils (%) (Auto) 85.4 % Lymphocytes (%) (Auto) 8.5 % Monocytes (%) (Auto) 5.9 % Eosinophils (%) (Auto) 0.1 % Basophils (%) (Auto) 0.1 % Neutrophils # (Auto) 9.6 TH/MM3 Lymphocytes # (Auto) 1.0 TH/MM3 Monocytes # (Auto) 0.7 TH/MM3 Eosinophils # (Auto) 0.0 TH/MM3 Basophils # (Auto) 0.0 TH/MM3 CBC Comment DIFF FINAL Differential Comment Physical Examination HEENT: normocephalic; atraumatic; no jaundice. CHEST: Chest is clear to auscultation and percussion. CARDIAC: Regular rate and rhythm ABDOMEN: Soft, nondistended, nontender; no hepatosplenomegaly; bowel sounds are present in all four quadrants. EXTREMITIES: No clubbing, cyanosis, or edema. SKIN: Normal; no rash; no jaundice. 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 (Chapincito Heller) Assessment and Plan Plan - Hematemesis- patient vomited about half cup of fresh bright red blood and Patient states after having the massive episode of bleed, she has been having only small drops of hematemesis. The emesis was described as bright red bleed. Denies melena or hematochezia. She has been having burning abd pain. Currently hgb is 12.4. Patient had previous EGD/colonoscopy about 10 yrs ago. Denies frequent used of NSAIDs, denies alcohol intake or blood thinner at home , no previous hx of this - STEMI alert/ SEAN- Due to Gi bleed, Stemi alert canceled and recommended conservative management. 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 Encinas and myself and this note is written on his behalf (Chapincito Heller) Physician Comments Patient seen and examined Agree with above Continue with current supportive care Monitor labs Case discussed with cardiology patient requires clearance for cardiac intervention from a GI perspective Due to her situation will need to keep her on heparin so basically R endoscopy is going to be mostly diagnostic while on heparin (Anibal Encinas MD) Chapincito Heller Jun 12, 2017 14:32 Anibal Encinas MD Jun 12, 2017 22:24
[2017-06-12 14:36] LABS: TROPONIN I 4.85 NG/ML (0.02-0.05)
[2017-06-12 15:59] LABS: HEMOGLOBIN 12.2 GM/DL (11.6-15.3); MEAN CELL VOLUME 95.2 FL (80.0-100.0); MEAN CORPUSCULAR HEMOGLOBIN 31.3 PG (27.0-34.0); MEAN CORPUSCULAR HGB CONC 32.8 % (32.0-36.0); MEAN PLATELET VOLUME 7.2 FL (7.0-11.0); PLATELET COUNT 273 TH/MM3 (150-450); RED BLOOD COUNT 3.89 MIL/MM3 (4.00-5.30); RED CELL DISTRIBUTION WIDTH 14.4 % (11.6-17.2); WHITE BLOOD COUNT 10.9 TH/MM3 (4.0-11.0)
[2017-06-12 16:15] LABS: INTERNATIONAL NORMALIZED RATIO 1.1 RATIO; PROTHROMBIN TIME - PATIENT 11.3 SEC (9.8-11.6)
[2017-06-12] MEDS ORDERED: HEPARIN SODIUM - IV 10,000 UNITS/10 ML VIAL IV PUSH PRN ×2 (20:15)
[2017-06-13] VITALS (14 sets, daily range): BP systolic 106–146; BP diastolic 58–80; PULSE 60–101; RESP 18–24; TEMP 99–100.4; O2SAT 93–99
[2017-06-13] MEDS: PANTOPRAZOLE SODIUM 40 MG VIAL IV PUSH SCH ×2 (01:27→13:21)
[2017-06-13] MEDS: CHLORHEXIDINE GLUCONATE 2 % 1 PACK (2 CLOTHS) TOP SCH ×2 (04:00→04:04)
[2017-06-13 05:19] LABS: INTERNATIONAL NORMALIZED RATIO 1.1 RATIO; PROTHROMBIN TIME - PATIENT 11.1 SEC (9.8-11.6)
[2017-06-13 06:04] LABS: BICARBONATE 20.8 MEQ/L (21.0-32.0); CALCIUM 8.1 MG/DL (8.5-10.1); CREATININE 1.04 MG/DL (0.50-1.00); MAGNESIUM 2.4 MG/DL (1.5-2.5); PHOSPHORUS 2.2 MG/DL (2.5-4.9)
[2017-06-13 06:30] LABS: AUTOMATED NEUTROPHIL # 8.8 TH/MM3 (1.8-7.7); BASOPHIL % 0.3 % (0.0-2.0); EOSINOPHIL % 0.3 % (0.0-4.0); HEMATOCRIT 34.4 % (35.0-46.0); HEMOGLOBIN 11.2 GM/DL (11.6-15.3); LYMPH % 24.4 % (9.0-44.0); LYMPHOCYTE # 3.3 TH/MM3 (1.0-4.8); MEAN CELL VOLUME 95.6 FL (80.0-100.0); MEAN CORPUSCULAR HEMOGLOBIN 31.3 PG (27.0-34.0); MEAN CORPUSCULAR HGB CONC 32.7 % (32.0-36.0); MEAN PLATELET VOLUME 7.8 FL (7.0-11.0); MONO % 10.1 % (0.0-8.0); MONOCYTE # 1.4 TH/MM3 (0-0.9); NEUT % 64.9 % (16.0-70.0); PLATELET COUNT 210 TH/MM3 (150-450); RED CELL DISTRIBUTION WIDTH 14.5 % (11.6-17.2); WHITE BLOOD COUNT 13.6 TH/MM3 (4.0-11.0)
--- NOTE | 2017-06-13 07:40 | HHI.CCPN ---
Subjective Remarks/Hospital Course 62-year-old female with no history significant of coronary artery disease presents with chest pain, per patient initially the elephant was sitting on her chest without radiation, later in the emergency department where she felt improving, she developed sudden onset of crushing chest pain radiating to her shoulders, she became diaphoretic, pale and hypotensive. 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 She was treated with morphine, Ativan, nitroglycerin, beta mary ellen with improvement of her symptoms. However shortly after she vomited about half cup of fresh bright red blood. The yeast fermentation attendant on-call canceled a STEMI alert and patient is admitted to ICU with conservative management. 06/13 No events ovenright. On Heparin and Nitro drip. Patient denies any CP/SOB. Trop increased 14.5 early this morning. For EGD today. Objective Vital Signs Date Time Temp Pulse Resp B/P (MAP) Pulse Ox O2 Delivery O2 Flow Rate FiO2 06/13/17 00:00 60 18 106/58 (74) 98 06/12/17 21:45 21 06/12/17 20:00 98.6 06/12/17 02:28 Room Air Result Diagram: 06/13/17 0431 06/13/17 0431 Other Results Laboratory Tests Test 06/12/17 13:15 06/12/17 15:34 06/12/17 19:52 06/13/17 03:02 White Blood Count 11.2 TH/MM3 10.9 TH/MM3 Red Blood Count 3.91 MIL/MM3 3.89 MIL/MM3 Hemoglobin 12.4 GM/DL 12.2 GM/DL Hematocrit 37.1 % 37.0 % Mean Corpuscular Volume 95.0 FL 95.2 FL Mean Corpuscular Hemoglobin 31.7 PG 31.3 PG Mean Corpuscular Hemoglobin Concent 33.4 % 32.8 % Red Cell Distribution Width 14.3 % 14.4 % Platelet Count 294 TH/MM3 273 TH/MM3 Mean Platelet Volume 8.3 FL 7.2 FL Neutrophils (%) (Auto) 85.4 % Lymphocytes (%) (Auto) 8.5 % Monocytes (%) (Auto) 5.9 % Eosinophils (%) (Auto) 0.1 % Basophils (%) (Auto) 0.1 % Neutrophils # (Auto) 9.6 TH/MM3 Lymphocytes # (Auto) 1.0 TH/MM3 Monocytes # (Auto) 0.7 TH/MM3 Eosinophils # (Auto) 0.0 TH/MM3 Basophils # (Auto) 0.0 TH/MM3 CBC Comment DIFF FINAL Differential Comment Blood Urea Nitrogen 16 MG/DL Creatinine 1.08 MG/DL Random Glucose 121 MG/DL Calcium Level 8.2 MG/DL Sodium Level 141 MEQ/L Potassium Level 4.7 MEQ/L Chloride Level 111 MEQ/L Carbon Dioxide Level 22.3 MEQ/L Anion Gap 8 MEQ/L Estimat Glomerular Filtration Rate 52 ML/MIN Troponin I 4.85 NG/ML 12.10 NG/ML 14.50 NG/ML Prothrombin Time 11.3 SEC Prothromb Time International Ratio 1.1 RATIO Activated Partial Thromboplast Time 78.3 SEC 60.2 SEC 58.5 SEC Test 06/13/17 04:31 White Blood Count 13.6 TH/MM3 Red Blood Count 3.60 MIL/MM3 Hemoglobin 11.2 GM/DL Hematocrit 34.4 % Mean Corpuscular Volume 95.6 FL Mean Corpuscular Hemoglobin 31.3 PG Mean Corpuscular Hemoglobin Concent 32.7 % Red Cell Distribution Width 14.5 % Platelet Count 210 TH/MM3 Mean Platelet Volume 7.8 FL Neutrophils (%) (Auto) 64.9 % Lymphocytes (%) (Auto) 24.4 % Monocytes (%) (Auto) 10.1 % Eosinophils (%) (Auto) 0.3 % Basophils (%) (Auto) 0.3 % Neutrophils # (Auto) 8.8 TH/MM3 Lymphocytes # (Auto) 3.3 TH/MM3 Monocytes # (Auto) 1.4 TH/MM3 Eosinophils # (Auto) 0.0 TH/MM3 Basophils # (Auto) 0.0 TH/MM3 CBC Comment DIFF FINAL Differential Comment Prothrombin Time 11.1 SEC Prothromb Time International Ratio 1.1 RATIO Activated Partial Thromboplast Time 62.0 SEC Blood Urea Nitrogen 15 MG/DL Creatinine 1.04 MG/DL Random Glucose 106 MG/DL Calcium Level 8.1 MG/DL Phosphorus Level 2.2 MG/DL Magnesium Level 2.4 MG/DL Sodium Level 140 MEQ/L Potassium Level 3.7 MEQ/L Chloride Level 111 MEQ/L Carbon Dioxide Level 20.8 MEQ/L Anion Gap 8 MEQ/L Estimat Glomerular Filtration Rate 54 ML/MIN Imaging Last Impressions Chest X-Ray 06/11/172046 Signed Impressions: Service Date/Time: Sunday, June 11, 2017 21:06 - CONCLUSION: No acute disease. Sergey Reis MD Aorta CTA 06/11/17 0000 Signed Impressions: Service Date/Time: Sunday, June 11, 2017 23:38 - CONCLUSION: 1. Normal aorta without evidence for aneurysm or dissection. 2. No evidence of pulmonary embolism to the proximal segmental level. 3. Minimal bibasilar groundglass opacities, likely atelectasis. 4. Coronary calcifications. 5. Cholelithiasis. 6. Small fat containing anterior abdominal periumbilical hernia. Patrick Montiel MD Objective Remarks GENERAL: Well-nourished, well-developed patient. SKIN: Warm and dry. HEAD: Normocephalic. EYES: No scleral icterus. No injection or drainage. NECK: Supple, trachea midline. No JVD or lymphadenopathy. CARDIOVASCULAR: Regular rate and rhythm without murmurs, gallops, or rubs. RESPIRATORY: Breath sounds equal bilaterally. No accessory muscle use. GASTROINTESTINAL: Abdomen soft, non-tender, nondistended. MUSCULOSKELETAL: No cyanosis, or edema. BACK: Nontender without obvious deformity. NEURO EXAM: GCS: 15 Mental Status: The patient is alert and oriented to person, place, and time with normal speech. A/P Assessment and Plan Acute coronary syndrome Hematemesis Leukocytosis Anemia Hypophos Depression/anxiety Plan Neuro: Awake and alert Pulm: Oxygen PRN keep sat >92% Bronchodilators CV: Monitor HR and BP keep MAP>65mmHg Monitor trop, for 2D echo today, Cards is following. Continue with Heparin drip monitor PTT. Wean off Nitro drip. Place on Lopressor 12.5mg BID, ASA, Lipitor, Aldactone . : Monitor renal function, I/O's, electrolytes replacement per protocol. Decrease NS 75ml/hr GI: NPO for EGD today, on Protonix 40mg BID Heme: Monitor CBC, transfuse if Hgb <8 On Heparin drip- monitor PTT ID: Monitor for signs of infections ( Fever, WBC) CXR on admission no acute disease, check UA Endo: SSI if needed for glycemic control GI prophylaxis- On Protonix DVT prophylaxis- On Heparin drip. Level.3 Rbui Marie MD Jun 13, 2017 07:40
[2017-06-13] MEDS ORDERED: MAGNESIUM SULFATE INJ 2 GM in SODIUM CHLORIDE 0.9% INJ 96 ML IV PRN (07:45)
[2017-06-13] MEDS ORDERED: POTASSIUM PHOSPHATE INJ 30 MMOL in SODIUM CHLOR 0.9% 250 ML INJ 250 ML IV PRN (07:45)
[2017-06-13] MEDS ORDERED: MAGNESIUM OXIDE 400 MG TAB PO PRN (07:45)
[2017-06-13] MEDS ORDERED: POTASSIUM CHLOR 20 MEQ PREMIX 100 ML IV PRN ×2 (07:45)
[2017-06-13] MEDS ORDERED: MAGNESIUM SULFATE INJ 4 GM in SODIUM CHLORIDE 0.9% INJ 92 ML IV PRN (07:45)
[2017-06-13] MEDS ORDERED: POTASSIUM PHOSPHATE MONOBASIC 500 MG TAB PO PRN (07:45)
[2017-06-13] MEDS ORDERED: POTASSIUM PHOSPHATE MONOBASIC 500 MG TAB PO/TUBE PRN (07:45)
[2017-06-13] MEDS ORDERED: POTASSIUM CHLOR 40 MEQ PREMIX 100 ML IV PRN ×2 (07:45)
[2017-06-13] MEDS ORDERED: PILL SPLITTER OTHER PRN (08:00)
--- NOTE | 2017-06-13 08:42 | PD.CARD.PN ---
Subjective Subjective Remarks Pt feels much better, some chest tightness but no pain and overall much better than on presentation Objective Medications Current Medications Medications (Trade) Dose Ordered Sig/Carlitos Route Start Time Stop Time Status Last Admin (Wellbutrin Sr) 150 mg BID PO 06/12/17 09:00 06/12/17 21:50 (Vitamin D3) 1,000 units DAILY PO 06/12/17 09:00 06/12/17 09:22 (Aldactone) 25 mg BIDPC PO 06/12/17 09:00 06/12/17 18:00 Sodium Chloride 1,000 ml @ 75 mls/hr [id number] IV 06/12/17 00:34 06/12/17 16:42 (NS Flush) 2 ml UNSCH PRN IV FLUSH 06/12/17 00:45 (NS Flush) 2 ml BID IV FLUSH 06/12/17 09:00 06/12/17 21:50 (Tylenol) 650 mg Q6H PRN PO 06/12/17 00:45 (Morphine Inj) 2 mg Q2H PRN IV PUSH 06/12/17 00:45 06/12/17 14:05 (Ativan Inj) 1 mg Q1H PRN IV PUSH 06/12/17 00:45 06/12/17 03:17 (Zofran Inj) 4 mg Q6H PRN IV PUSH 06/12/17 00:45 06/12/17 04:09 (Ambien) 5 mg HS PRN PO 06/12/17 00:45 (Duoneb Neb) 1 ampule Q2HR NEB PRN INH 06/12/17 00:45 Miscellaneous Information 1 Q361D XX 06/12/17 00:45 (Chlorhexidine 2% Cloth) 3 pack Taper DAILY@04 TOP 06/12/17 04:00 06/08/18 03:59 06/12/17 04:00 (Chlorhexidine 2% Cloth) 3 pack UNSCH PRN TOP 06/12/17 00:45 ([place]-Colace) 1 tab BID PO 06/12/17 09:00 06/12/17 09:22 (Milk Of Magnesia Liq) 30 ml Q12H PRN PO 06/12/17 00:45 (Senokot) 17.2 mg Q12H PRN PO 06/12/17 00:45 (Dulcolax Supp) 10 mg DAILY PRN RECTAL 06/12/17 00:45 (Lactulose Liq) 30 ml DAILY PRN PO 06/12/17 00:45 (Lipitor) 80 mg DAILY PO 06/12/17 09:00 06/12/17 09:22 (Trandate Inj) 10 mg Q4H PRN IV PUSH 06/12/17 00:45 (Compazine Inj) 5 mg Q6H PRN IV 06/12/17 06:15 (Protonix Inj) 40 mg Q12H IV PUSH 06/12/17 13:00 06/13/17 01:27 (Heparin Inj) 5,000 units UNSCH PRN IV PUSH 06/12/17 20:15 (Heparin Inj) 2,500 units UNSCH PRN IV PUSH 06/12/17 20:15 Heparin Sodium/ Dextrose 250 ml @ 10 mls/hr TITRATE PRN IV 06/12/17 14:30 06/12/17 14:33 Nitroglycerin/ Dextrose 250 ml @ 1.5 mls/hr TITRATE PRN IV 06/12/17 14:30 06/12/17 14:26 (Ecotrin Ec) 162 mg DAILY PO 06/13/17 09:00 (Lopressor) 12.5 mg Q12HR PO 06/13/17 09:00 Potassium Chloride 100 ml @ 50 mls/hr Q2H PRN IV 06/13/17 07:45 Potassium Chloride 100 ml @ 50 mls/hr Q2H PRN IV 06/13/17 07:45 (K-Lyte Cl Eff) 50 meq UNSCH PRN PO 06/13/17 07:45 Potassium Chloride 100 ml @ 25 mls/hr UNSCH PRN IV 06/13/17 07:45 Potassium Chloride 100 ml @ 50 mls/hr Q2H PRN IV 06/13/17 07:45 Magnesium Sulfate 4 gm/Sodium Chloride 100 ml @ 50 mls/hr UNSCH PRN IV 06/13/17 07:45 (Mag-Ox) 800 mg UNSCH PRN PO 06/13/17 07:45 Magnesium Sulfate 2 gm/Sodium Chloride 100 ml @ 50 mls/hr UNSCH PRN IV 06/13/17 07:45 (K-Phos) 2,000 mg Q4H PRN PO 06/13/17 07:45 Sodium Phosphate 30 mmol/Sodium Chloride 250 ml @ 42 mls/hr UNSCH PRN IV 06/13/17 07:45 (K-Phos) 2,000 mg UNSCH PRN PO/TUBE 06/13/17 07:45 Potassium Phosphate 30 mmol/ Sodium Chloride 260 ml @ 42 mls/hr UNSCH PRN IV 06/13/17 07:45 (Pill Splitter) 1 ea UNSCH PRN OTHER 06/13/17 08:00 Vital Signs / I&O Vital Signs Date Time Temp Pulse Resp B/P (MAP) Pulse Ox O2 Delivery O2 Flow Rate FiO2 06/13/17 08:00 99.6 81 24 138/80 (99) 99 06/13/17 06:00 64 06/13/17 04:00 99.1 62 19 131/69 (89) 98 06/13/17 04:00 62 06/13/17 02:00 66 06/13/17 00:00 60 18 106/58 (74) 98 06/13/17 00:00 60 06/12/17 22:00 56 06/12/17 21:45 97 21 06/12/17 20:00 98.6 60 20 112/60 (77) 97 06/12/17 20:00 60 06/12/17 18:00 59 06/12/17 17:34 63 110/62 06/12/17 16:00 59 06/12/17 15:00 98.3 58 18 106/55 (72) 99 06/12/17 14:26 62 104/65 06/12/17 14:00 59 06/12/17 12:00 55 06/12/17 11:00 98.3 77 20 90/51 (64) 97 06/12/17 10:00 58 I/O 06/12/17 06/12/17 06/12/17 06/13/17 06/13/17 06/13/17 07:00 15:00 23:00 07:00 15:00 23:00 Intake Total 496 ml 2232.6 ml 1650 ml Output Total 0 ml 850 ml 525 ml Balance 496 ml 1382.6 ml 1125 ml Intake IV Total 496 ml 2232.6 ml 1650 ml Output Urine Total 0 ml 850 ml 525 ml # Bowel Movements 0 0 Physical Exam GENERAL: This is a well-nourished, well-developed patient, in no apparent distress. CARDIOVASCULAR: Regular rate and rhythm without murmurs, gallops, or rubs. RESPIRATORY: Clear to auscultation. Breath sounds equal bilaterally. No wheezes , rales, or rhonchi. GASTROINTESTINAL: Abdomen soft, non-tender, nondistended. Normal active bowel sounds MUSCULOSKELETAL: Extremities without clubbing, cyanosis, or edema. NEURO: Alert & Oriented x4 to person, place, time, situation. Moves all ext x4 Laboratory Laboratory Tests Test 06/12/17 13:15 06/12/17 15:34 06/12/17 19:52 06/13/17 03:02 White Blood Count 11.2 TH/MM3 10.9 TH/MM3 Red Blood Count 3.91 MIL/MM3 3.89 MIL/MM3 Hemoglobin 12.4 GM/DL 12.2 GM/DL Hematocrit 37.1 % 37.0 % Mean Corpuscular Volume 95.0 FL 95.2 FL Mean Corpuscular Hemoglobin 31.7 PG 31.3 PG Mean Corpuscular Hemoglobin Concent 33.4 % 32.8 % Red Cell Distribution Width 14.3 % 14.4 % Platelet Count 294 TH/MM3 273 TH/MM3 Mean Platelet Volume 8.3 FL 7.2 FL Neutrophils (%) (Auto) 85.4 % Lymphocytes (%) (Auto) 8.5 % Monocytes (%) (Auto) 5.9 % Eosinophils (%) (Auto) 0.1 % Basophils (%) (Auto) 0.1 % Neutrophils # (Auto) 9.6 TH/MM3 Lymphocytes # (Auto) 1.0 TH/MM3 Monocytes # (Auto) 0.7 TH/MM3 Eosinophils # (Auto) 0.0 TH/MM3 Basophils # (Auto) 0.0 TH/MM3 CBC Comment DIFF FINAL Differential Comment Blood Urea Nitrogen 16 MG/DL Creatinine 1.08 MG/DL Random Glucose 121 MG/DL Calcium Level 8.2 MG/DL Sodium Level 141 MEQ/L Potassium Level 4.7 MEQ/L Chloride Level 111 MEQ/L Carbon Dioxide Level 22.3 MEQ/L Anion Gap 8 MEQ/L Estimat Glomerular Filtration Rate 52 ML/MIN Troponin I 4.85 NG/ML 12.10 NG/ML 14.50 NG/ML Prothrombin Time 11.3 SEC Prothromb Time International Ratio 1.1 RATIO Activated Partial Thromboplast Time 78.3 SEC 60.2 SEC 58.5 SEC Test 06/13/17 04:31 06/13/17 07:50 White Blood Count 13.6 TH/MM3 Red Blood Count 3.60 MIL/MM3 Hemoglobin 11.2 GM/DL Hematocrit 34.4 % Mean Corpuscular Volume 95.6 FL Mean Corpuscular Hemoglobin 31.3 PG Mean Corpuscular Hemoglobin Concent 32.7 % Red Cell Distribution Width 14.5 % Platelet Count 210 TH/MM3 Mean Platelet Volume 7.8 FL Neutrophils (%) (Auto) 64.9 % Lymphocytes (%) (Auto) 24.4 % Monocytes (%) (Auto) 10.1 % Eosinophils (%) (Auto) 0.3 % Basophils (%) (Auto) 0.3 % Neutrophils # (Auto) 8.8 TH/MM3 Lymphocytes # (Auto) 3.3 TH/MM3 Monocytes # (Auto) 1.4 TH/MM3 Eosinophils # (Auto) 0.0 TH/MM3 Basophils # (Auto) 0.0 TH/MM3 CBC Comment DIFF FINAL Differential Comment Prothrombin Time 11.1 SEC Prothromb Time International Ratio 1.1 RATIO Activated Partial Thromboplast Time 62.0 SEC Blood Urea Nitrogen 15 MG/DL Creatinine 1.04 MG/DL Random Glucose 106 MG/DL Calcium Level 8.1 MG/DL Phosphorus Level 2.2 MG/DL Magnesium Level 2.4 MG/DL Sodium Level 140 MEQ/L Potassium Level 3.7 MEQ/L Chloride Level 111 MEQ/L Carbon Dioxide Level 20.8 MEQ/L Anion Gap 8 MEQ/L Estimat Glomerular Filtration Rate 54 ML/MIN Imaging Last Impressions Chest X-Ray 06/11/172046 Signed Impressions: Service Date/Time: Sunday, June 11, 2017 21:06 - CONCLUSION: No acute disease. Sergey Reis MD Aorta CTA 06/11/17 0000 Signed Impressions: Service Date/Time: Sunday, June 11, 2017 23:38 - CONCLUSION: 1. Normal aorta without evidence for aneurysm or dissection. 2. No evidence of pulmonary embolism to the proximal segmental level. 3. Minimal bibasilar groundglass opacities, likely atelectasis. 4. Coronary calcifications. 5. Cholelithiasis. 6. Small fat containing anterior abdominal periumbilical hernia. Patrick Montiel MD Assessment and Plan Problem List: (1) ST elevation myocardial infarction (STEMI) of inferior wall ICD Codes: I21.19 - ST elevation (STEMI) myocardial infarction involving other coronary artery of inferior wall Plan: Had to be treated conservatively at first due to active GI bleeding, pt doing better, will likely get a cath later today or tomorrow pending GI clearance. (2) Chest pain ICD Codes: R07.9 - Chest pain, unspecified (3) GI bleed ICD Codes: K92.2 - Gastrointestinal hemorrhage, unspecified Plan: Much improved on nitro ggt/heparin (4) CAD (coronary artery disease) ICD Codes: I25.10 - Atherosclerotic heart disease of [place] coronary artery without angina pectoris Plan: Presumptive, medical mgt ongonig asa/statin/bb Assessment and Plan For GI w/u and then cath Ricky Campbell MD Jun 13, 2017 08:42
[2017-06-13] MEDS: SODIUM CHLORIDE 0.9% FLUSH 10 ML FLUSH IV FLUSH SCH ×2 (09:00→22:19)
[2017-06-13] MEDS ORDERED: IOHEXOL 350 MG/ML 100 ML BTL (for Cath Lab) OTHER ONE (09:05)
[2017-06-13 09:28] LABS: TROPONIN I 14.3 NG/ML (0.02-0.05)
[2017-06-13] MEDS: DOCUSATE SODIUM 50 MG/SENNA 8.6 MG TAB PO SCH ×2 (10:00→21:00)
[2017-06-13] MEDS: SPIRONOLACTONE 25 MG TAB PO SCH ×2 (10:00→17:05)
[2017-06-13] MEDS: buPROPion HCL 150 MG SUSTAINED RELEASE TAB PO SCH ×2 (10:00→22:18)
[2017-06-13] MEDS: METOPROLOL TARTRATE 25 MG TAB PO SCH ×2 (10:00→22:19)
--- NOTE | 2017-06-13 10:35 | MB ---
cc: MANOHAR HAMLIN M.D. DATE OF CONSULTATION 06/13/2017 REASON FOR CONSULTATION Cardiac catheterization. HISTORY OF PRESENT ILLNESS The patient is a 62-year-old white female with basically no major past medical history, who presented to the emergency room a couple nights ago with substernal chest discomfort which had been ongoing for the past 24 hours prior to presentation. Initially the chest discomfort was a "burning" in her mid chest and left parasternal area without associated shortness of breath, nausea or diaphoresis. However, the chest discomfort became worse in intensity and more of a "tightness." When she came to the emergency department she developed EKG changes suggestive of acute inferior ST-elevation myocardial infarction. The patient was called as a STEMI Alert but she developed an episode of hematemesis so the emergency cardiac catheterization was cancelled at that time. The patient states she has had a residual very slight substernal chest tightness which worsens with deep inspiration. She denies dizziness, syncope, near-syncope, palpitations, pedal edema, paroxysmal nocturnal dyspnea, cough, fevers. PAST MEDICAL HISTORY Hyperlipidemia. MEDICATIONS Cardiac medications at home: 1. Lipitor. 2. Aldactone. ALLERGIES NEOMYCIN. FAMILY HISTORY There is no significant family history of early myocardial infarction. Her mother did have diabetes. SOCIAL HISTORY The patient denies alcohol abuse. She quit smoking 30 years ago. REVIEW OF SYSTEMS As in the history of present illness otherwise negative or noncontributory. She also denies headache, abdominal pain, melena, dyspepsia, bright red blood per rectum. PHYSICAL EXAMINATION VITAL SIGNS: On physical examination blood pressure is 138/80 with a pulse of 80, respirations 15. GENERAL: In general she is a well-developed, well-nourished white female in no acute distress. HEENT/NECK: Jugular venous pressure is normal. Carotid pulses are 2+ bilaterally and without bruits. CHEST: Examination of the chest reveals clear lung joseph. CARDIAC: On cardiac examination she has a regular rhythm and rate without S3, S4, or murmur. ABDOMEN: On abdominal examination she has a soft, nontender abdomen. Bowel sounds are present. There is no definite hepatosplenomegaly. EXTREMITIES: Examination of extremities reveals no clubbing, cyanosis or edema. LABORATORY Laboratory data includes troponin 14.5, BUN 15, creatinine 1.04, potassium 3.7, WBC 13.6, hemoglobin 11.2, platelets 210. IMAGING Chest x-ray shows no acute disease. IMPRESSION Acute inferior ST-elevation myocardial infarction in a 62-year-old white female with a history of hyperlipidemia. I have been asked to see the patient for cardiac catheterization. She was actually called as a STEMI alert the other night but she developed hematemesis which would have increased the risk of bleeding considerably with the administration of antiplatelet, anticoagulation therapy needed for coronary stenting. There is no evidence for congestive heart failure or significant arrhythmias so far. I would agree with the need for cardiac catheterization after GI has cleared her. RECOMMENDATIONS Await clearance from GI consultants before proceeding with cardiac catheterization. Manohar Hamlin MD GHBrad/ANKUSH /8:44 AM /10:25 AM MTDD
--- NOTE | 2017-06-13 11:56 | GIPROC ---
[facility] [address] [facility]. [facility], [address] EGD PROCEDURE REPORT EXAM DATE: 06/13/2017 PATIENT NAME: Pao Doan MR #: [id number] BIRTHDATE: 1955 ATTENDING: Mahi Schulz MD ORDER #: [id number] MOVIE THEATER USHER: Dianna Gan and Christie Ricardo STATUS: inpatient INDICATIONS: The patient is a 62 yr old female here for an EGD due to hematemesis PROCEDURE PERFORMED: EGD, diagnostic MEDICATIONS: None and Per Anesthesia. TOPICAL ANESTHETIC: CONSENT: The patient understands the risks and benefits of the procedure and understands that these risks include, but are not limited to: sedation, allergic reaction, infection, perforation and/or bleeding. Alternative means of evaluation and treatment include, among others: physical exam, x-rays, and/or surgical intervention. The patient elects to proceed with this endoscopic procedure. medical equipment was checked for proper function. Hand hygiene and appropriate measures for infection prevention was taken. After the risks, benefits and alternatives of the procedure were thoroughly explained, Informed consent was verified, confirmed and timeout was successfully executed by the treatment team. The patient was anesthetized with topical anesthesia and the Pentax [id number] endoscope was introduced through the mouth and advanced to the second portion of the duodenum. Retroflexed views revealed no abnormalities The gastroscope was then slowly withdrawn and removed. ESOPHAGUS: There was LA Class A esophagitis noted. A non-bleeding Sasha-Watt tear was found in the distal esophagus. STOMACH: The mucosa of the stomach appeared normal. DUODENUM: The duodenal mucosa appeared normal in the bulb and second portion of the duodenum. ADVERSE EVENTS: There were no complications. IMPRESSIONS: 1. There was LA Class A esophagitis noted 2. Sasha-Watt tear in the distal esophagus 3. The mucosa of the stomach appeared normal 4. Normal duodenal mucosa in the bulb and second portion of the duodenum 5. Retroflexed views revealed no abnormalities RECOMMENDATIONS: 1. Anti-reflux regimen 2. Continue PPI 3. Restart heparin. Cleared for cardiac bernstein PATIENT CONDITION: stable DISPOSITION: Inpatient REPEAT EXAM: Return 3 months EGD Champagne Zeus MD eSigned: Mahi Schulz MD 06/13/2017 11:55 AM cc: PATIENT NAME: Pao Doan MR#: [id number]
[2017-06-13] MEDS ORDERED: PHENYLEPH/NS 1000 MCG/10 ML SYR IV ONE (12:00)
[2017-06-13] MEDS ORDERED: PROPOFOL 200 MG/20 ML AMP IV ONE (12:00)
[2017-06-13] MEDS ORDERED: ePHEDrine/NS 25 MG/5 ML SYRINGE IV ONE (12:00)
[2017-06-13] MEDS ORDERED: LIDOCAINE HCL 1% PF 5 ML SYRINGE OTHER ONE (12:00)
[2017-06-13] MEDS ORDERED: SUCCINYLCHOLINE CHLORIDE 200 MG/10 ML VIAL IV ONE (12:00)
[2017-06-13] MEDS: CHOLECALCIFEROL (VIT D3) 1000 UNIT TAB PO SCH (13:21)
[2017-06-13] MEDS: ASPIRIN EC 81 MG TABEC PO SCH (13:21)
[2017-06-13] MEDS: ATORVASTATIN 80 MG TAB PO SCH (13:22)
[2017-06-13] MEDS ORDERED: DO NOT ADM ANY ANTICOAGULANT DRUGS PRN (14:00)
[2017-06-13] MEDS ORDERED: SODIUM CHLOR 0.9% 1000 ML INJ 1,000 ML IV SCH (14:14)
[2017-06-13] MEDS ORDERED: DIAZEPAM 10 MG TAB PO SCH (14:15)
[2017-06-13] MEDS ORDERED: MIDAZOLAM HCL 2 MG/2 ML VIAL IV PUSH SCH (14:15)
[2017-06-13] MEDS ORDERED: diphenhydrAMINE HCL 50 MG CAP PO SCH (14:15)
[2017-06-13] MEDS ORDERED: PANTOPRAZOLE INJ 80 MG in SODIUM CHLORIDE 0.9% INJ 100 ML IV SCH (15:00)
--- NOTE | 2017-06-13 16:09 | ECHRPT ---
Indication: cad CONCLUSIONS Normal left ventricular size. The left ventricular systolic function is low normal with an estimated ejection fraction in the rang e of 50- 55%. Trace mitral valve regurgitation. No aortic valve regurgitation. No aortic valve stenosis. There is trace tricuspid valve regurgitation. The estimated pulmonary arterial pressure is 33.8 mmHg. BP: / HR: Rhythm: MEASUREMENTS (Male / Female) Normal Values Technical Quality:Technically difficult study 2D ECHO LV Diastolic Diameter PLAX 3.7 cm 4.2 - 5.9 / 3.9 - 5.3 cm LV Systolic Diameter PLAX 2.7 cm IVS Diastolic Thickness 1.5 cm 0.6 - 1.0 / 0.6 - 0.9 cm LVPW Diastolic Thickness 1.1 cm 0.6 - 1.0 / 0.6 - 0.9 cm LV Relative Wall Thickness 0.7 RV Internal Dim ED PLAX 2.3 cm M-MODE Aortic Root Diameter MM 3.2 cm LA Systolic Diameter MM 2.8 cm LA Ao Ratio MM 0.9 AV Cusp Separation MM 2.0 cm DOPPLER LV E' Lateral Velocity 8.4 cm/s LV E' Septal Velocity 8.5 cm/s TR Peak Velocity 244.0 cm/s TR Peak Gradient 23.8 mmHg Right Atrial Pressure 10.0 mmHg Pulmonary Artery Systolic Pressu 33.8 mmHg Right Ventricular Systolic Press 33.8 mmHg FINDINGS LEFT VENTRICLE Normal left ventricular size. The left ventricular systolic function is low normal with an estimated ejection fraction in the rang e of 50- 55%. RIGHT VENTRICLE Normal right ventricular size and systolic function. LEFT ATRIUM The left atrial size is normal. RIGHT ATRIUM The right atrial size is normal. ATRIAL SEPTUM Normal atrial septal thickness without atrial level shunting by limited color doppler interrogation. AORTA The aortic root and proximal ascending aorta are normal in size on limited imaging. MITRAL VALVE Structurally normal mitral valve. Trace mitral valve regurgitation. AORTIC VALVE Trileaflet aortic valve. No aortic valve regurgitation. No aortic valve stenosis. TRICUSPID VALVE Structurally normal tricuspid valve. There is trace tricuspid valve regurgitation. The estimated pulmonary arterial pressure is 33.8 mmHg. PULMONARY VALVE No pulmonary valve regurgitation or stenosis. VESSELS The inferior vena cava is normal in size. PERICARDIUM No pericardial effusion. Ulysses Buchanan MD (Electronically Signed) Final Date:13 June 2017 16:08
[2017-06-13] MEDS: METOCLOPRAMIDE HCL 10 MG/2 ML VIAL IV PUSH SCH ×2 (16:33→22:18)
[2017-06-13] MEDS: SODIUM PHOSPHATE INJ 30 MMOL in SODIUM CHLOR 0.9% 250 ML INJ 240 ML IV PRN (17:06)
[2017-06-13 22:56] LABS: BILIRUBIN, URINE NEG (NEG); BLOOD, URINE NEG (NEG); GLUCOSE,URINE NEG (NEG); KETONE, URINE NEG (NEG); MUCUS URINE FEW /lpf (OCC); NITRITE,URINE NEG (NEG); PH, URINE 5.5 (5.0-8.5); SQUAMOUS EPITHELIAL CELL URINE 1 /hpf (0-5); URINE COLOR LIGHT-YELLOW (YELLW/STRAW); URINE LEUKOCYTE ESTERASE SMALL (NEG)
[2017-06-14] VITALS (25 sets, daily range): BP systolic 121–149; BP diastolic 61–91; PULSE 67–89; RESP 16–25; TEMP 97.8–100.1; O2SAT 96–99
[2017-06-14] MEDS: PANTOPRAZOLE INJ 80 MG in SODIUM CHLORIDE 0.9% INJ 100 ML IV SCH ×3 (02:40→21:11)
[2017-06-14] MEDS: CHLORHEXIDINE GLUCONATE 2 % 1 PACK (2 CLOTHS) TOP SCH (04:00)
[2017-06-14] MEDS: METOCLOPRAMIDE HCL 10 MG/2 ML VIAL IV PUSH SCH ×3 (06:06→21:10)
[2017-06-14] MEDS ORDERED: HEPARIN-NS/PF INJ 1,000 ML ONE (07:09)
[2017-06-14] MEDS ORDERED: MIDAZOLAM HCL 2 MG/2 ML VIAL ONE (07:10)
[2017-06-14] MEDS ORDERED: NITROGLYCERIN INJ 0 ML ONE (07:11)
[2017-06-14] MEDS ORDERED: HEPARIN SODIUM - IV 10,000 UNITS/10 ML VIAL ONE (07:11)
[2017-06-14 07:44] LABS: AUTOMATED NEUTROPHIL # 6.8 TH/MM3 (1.8-7.7); BASOPHIL % 0.4 % (0.0-2.0); EOSINOPHIL # 0.1 TH/MM3 (0-0.4); EOSINOPHIL % 0.7 % (0.0-4.0); HEMATOCRIT 33.4 % (35.0-46.0); HEMOGLOBIN 11.3 GM/DL (11.6-15.3); LYMPH % 25.8 % (9.0-44.0); LYMPHOCYTE # 2.8 TH/MM3 (1.0-4.8); MEAN CELL VOLUME 94.1 FL (80.0-100.0); MEAN CORPUSCULAR HEMOGLOBIN 31.8 PG (27.0-34.0); MEAN CORPUSCULAR HGB CONC 33.8 % (32.0-36.0); MEAN PLATELET VOLUME 8.3 FL (7.0-11.0); MONO % 11.3 % (0.0-8.0); MONOCYTE # 1.3 TH/MM3 (0-0.9); NEUT % 61.8 % (16.0-70.0); PLATELET COUNT 222 TH/MM3 (150-450); RED BLOOD COUNT 3.55 MIL/MM3 (4.00-5.30); RED CELL DISTRIBUTION WIDTH 14.3 % (11.6-17.2); WHITE BLOOD COUNT 11.1 TH/MM3 (4.0-11.0)
[2017-06-14] MEDS ORDERED: SODIUM CHLOR 0.9% 1000 ML INJ 1,000 ML IV SCH (07:57)
--- NOTE | 2017-06-14 07:59 | CATHPROC ---
[employer] HIS Report Study Information Study Number Admission Scheduled Start Study Start [id number] Jun 12 2017 12:16AM 06/13/2017 Jun 14 2017 6:53AM [place] [facility] Cardiac Catheterization Admit Source Facility Department Other [facility] - Instructor Product Inspection Physician and Clinical Staff Initial Manohar Reyes Credit Counselor Geno Harris,RN Recorder Yolanda He,RT(R) Scrub Vesna Artis,RT(R) Procedures Performed Procedure Location (Site) Vessel Name Angiogram LV Asc. Aorta (A) Angiogram LV LV Ventricle Coronary Angiograms LCA Left Coronary Wire insertion Fem Art (right) Femoral Art Equipment Time Falsework Builder Description Size Mfg Part Number Used/Scraped TRANSDUCER, TRStyleSaintAVE [id number] 06:53 SAMAYOA MACDONALD * Used W/STOCKCOCK *[id number] 07:47 [employer] MEDICAL VASCADE, FR6 CLOSURE SYSTEM FR 6\7 Used *[id number] [id number] *[id number] [id number] *[id number] 534-620T *[id number] 534-650S *[id number] 06:53 MED[employer] IND[employer] PACK, CCL CUSTOM * Used *[id number] 06:53 [employer] PACER PEN, SKIN DUAL W/ RULER * Used *[id number] 06:53 [employer] MEDICAL SHEATH, FR6.5 PRELUDE 11CM FR 6.5 038ACT Used *[id number] 06:53 [employer] MEDICAL WIRE, 3MMJ .035 180CM 180CM Used *[id number] 06:53 NAMIC MANIFOLD, 4 PORT * Used *[id number] 06:53 [employer]COMED OMNIPAQUE, 350 MG, 150ML 150ML [id number] Used 07:48 [employer]COMED OMNIPAQUE, 350 MG, 150ML 150ML [id number] Used [id number] 06:53 [employer] MEDICAL BLANKET,WARM AIR CCL * Used *[id number] History: Current Medications Medication Dosage/Unit Route Frequency Last Date/Time Taken LIPITOR History: Allergies Allergy Reaction neomycin RASH History: Risk Factors Family History of Hypertension Dyslipidemia Previous NC Previous Heart Failure Premature CAD Yes Yes No No No Prior Valve Prior PCI Prior CABG Surgery No No No Cerebrovascular Peripheral Artery Chronic Lung On Dialysis Diabetes Disease Disease Disease No No No No No History: Symptoms/Diagnosis Selection Items Angina-unstable History: Stress Tests Stress or Imaging Studies Performed No History: Other Current Smoker Method Quit Packs a Day Years Used Pack Years No Cigarettes 30 Years Ago 2 10 20 Labs Hgb (g/dl) Hct (%) RBC (MIL/MM3) WBC (l/cumm) Platelets (thousands) 11.60-17.00 35.00-51.00 4.00-5.90 4.00-11.00 150.00-450.00 11.2 34.4 3.6 13.6 210 Glucose (mg/dl) BUN (mg/dl) Creatinine (mg/dl) BUN:Creatinine (1:x) 74.00-106.00 7.00-18.00 0.50-1.30 10.00-20.00 106 15 1.0 15 Na (meq/l) K (meq/l) Cl (meq/l) CO2 (mmol/L) Ca (mg/dl) 136.00-145.00 3.50-5.10 98.00-107.00 21.00-32.00 8.50-10.10 140 3.7 111 20.8 8.1 PT (sec) PTT (sec) INR (PTT:PT) 9.80-11.60 24.30-30.10 0.90-1.10 11.1 62 1.1 Troponin I (ng/ml) CPK (u/l) CPK-MB (ng/ML) 0.02-0.05 26.00-308.00 0.50-3.60 14.3 155 1.9 Medication Medication Total Dose (Bolus/Oral) Medication Total Dosage/Unit 1% XYLOCAINE 20 mL VERSED 2 mg Medications (Bolus/Oral) Medication Time Given Dosage/Unit Administered By Reason 1% XYLOCAINE 06/14/2017 7:27:59 AM 20 mL Manohar Radford 20 mL 1% XYLOCAINE given in lab by Manohar Radford in Right Groin via Subcutaneous. VERSED 06/14/2017 7:29:14 AM 2 mg Geno Harris 2 mg VERSED given in lab by Geno Harris, RN via Peripheral IV. Medication (Drip) Medication Time Given Dosage/Unit Concentration/Unit Diluent (ml) Solution HEPARIN DRIP 06/14/2017 6:50:00 AM 1000 units/hr 42450 units 250 D5W 1000 units/hr HEPARIN DRIP given by Manohar Radford via Peripheral IV. Pump/Drip Flow = 10 ml/hr using D 5W [place] [address] units in 250 ml. discontinued drip in pts room IV Solutions 06/14/2017 7:10:17 AM 0 mL (IV) NaCl .9 Patient arrived on IV Solutions in Right Forearm via Peripheral IV. Pump/Drip Flow = 100 ml/hr using NaCl .9. Initial Case Assessment Cardiovascular HR Rhythm NIBP Chest Pain 77 reg 138/81 0 Edema Present Skin color Skin None Normal Warm Circulatory - Right Pulses Dorsalis Pedis Femoral 2 2 Scale (0,1,2,3,4,d) Circulatory - Left Pulses Dorsalis Pedis Femoral 2 2 Scale (0,1,2,3,4,d) Circulatory - Lower Extremities Color Lower Right Color Lower Left Normal Normal Neurological State Oriented to time-place- Alert Moves all extremities person Respiration - General Respiration Rate SpO2 (%) (B/min) 20 97 Final Case Assessment Cardiovascular HR Rhythm NIBP Chest Pain 88 reg 141/90 0 Edema Present Skin color Skin None Normal Warm Circulatory - Right Pulses Dorsalis Pedis Femoral 2 2 Scale (0,1,2,3,4,d) Circulatory - Left Pulses Dorsalis Pedis Femoral 2 2 Scale (0,1,2,3,4,d) Circulatory - Lower Extremities Color Lower Right Color Lower Left Normal Normal Neurological State Oriented to time-place- Alert Moves all extremities person Respiration - General Respiration Rate SpO2 (%) (B/min) 22 95 Chronological Log Time Study Chronological Log 1000 units/hr HEPARIN DRIP given by Manohar Radford via Peripheral IV. Pump/Drip Flow = 10 ml/hr u sing D5W with [place] 6:50:[place] [address] units in 250 ml. discontinued drip in pts room 7:04:19 Patient arrived via Bed. 7:04:20 Patient Name, D.O.B, / Armband Verified By R.N. 7:04:21 Consent signed by the physician and the patient and verified by the Instructor Product Inspection staff. 7:04:22 Pre-op and post- op instructions given; patient acknowledges understanding of instructions. 7:04:22 Verbal Stimulation=2 Physical Stimulation=2 Airway=2 Respiration=2 TOTAL=8. (0=absent, 1=li mited, 2=present) 7:04:24 Patient has been NPO for More than 6Hrs. 7:04:25 Skin Breakdown-none 7:09:38 A # 20 IV was noted in the Forearm (right). Grade = 0 Vitals capture started with the following parameters, Patient=Adult, Interval=5 min, Initial Pr imwfys=799 mmHg, 7:09:58 Deflation Rate=5 mmHg, Cuff placed on Left Arm 7:10:02 A # 20 IV was noted in the Forearm (left). Grade = 0 7:10:17 Patient arrived on IV Solutions in Right Forearm via Peripheral IV. Pump/Drip Flow = 100 ml /hr using NaCl .9. 7:10:35 HR=78 bpm, NTXI=956/78 mmhg, SpO2=98.0 %, Resp=9 B/min, Pain=0, Jonathan=10, Helton=2 7:13:44 A # 20 IV was noted in the Antecubital (left). Grade = 0 7:15:27 protonix running 10/hr left forearm iv 7:15:34 HR=79 bpm, TYOV=053/81 mmhg, SpO2=97.0 %, Resp=23 B/min, Pain=0, Jonathan=10, Helton=2 7:16:01 History and physical on the chart or being dictated. Assessment: Initial Case, HR=77 BPM, Rhythm=reg, MJPV=331/81 mmhg, Chest Pain=0, Edema=None, Col or=Normal, Skin = Warm Right Pulses: Jona Ped=2, Femoral=2 Left Pulses: Jona Ped=2, Femoral=2 7:16:12 Lower Right Extremities: Color=Normal Lower Left Extremities: Color=Normal Neurological: State=Alert, Ox3, ELLISON Respiration: Resp=20 B/min, SpO2=97 % 7:17:35 Bilateral groins prepped with 2% chlorhexidine, and draped after a 3 minute waiting time. 7:17:39 paged 7:19:48 Reference ECG taken 7:20:35 HR=74 bpm, CNLK=836/85 mmhg, SpO2=98.0 %, Resp=20 B/min, Pain=0, Jonathan=10, Helton=2 7:22:47 Pressure channel 1 zeroed. 7:25:06 MD arrived. 7:25:32 HR=73 bpm, AKKF=586/82 mmhg, SpO2=98.0 %, Resp=15 B/min, Pain=0, Jonathan=10, Helton=2 Time Out. Correct patient, correct procedure, correct physician, power injector not loaded with contrast with surgical 7:27:35 team present. Time Out Concurred by MD and individual staff in procedure. 7:27:47 Case Start 7:27:51 Verbal Stimulation=2 Physical Stimulation=2 Airway=2 Respiration=2 TOTAL=8. (0=absent, 1=sim ited, 2=present) 7:27:59 20 mL 1% XYLOCAINE given in lab by Manohar Radford in Right Groin via Subcutaneous. 7:28:53 Access site was Right Femoral Artery. 7:28:58 A wire was inserted via Fem Art (right). 7:29:00 A SHEATH, FR6.5 PRELUDE 11CM FR 6.5 was advanced into the Fem Art (right) using the Percutan eous technique. 7:29:14 2 mg VERSED given in lab by Geno Harris, RITA via Peripheral IV. A 3DRC INFINITI CATHETER FR 6 was advanced over a wire. OMNIPAQUE, 350 MG, 150ML 150ML was used for 7:29:38 injections. 7:30:35 HR=75 bpm, BMHJ=130/85 mmhg, SpO2=97.0 %, Resp=22 B/min, Pain=0, Jonathan=10, Helton=2 7:31:36 Catheter was removed A JL 4.0 INFINITI CATHETER FR 6 was advanced over a wire. OMNIPAQUE, 350 MG, 150ML 150ML was use d for 7:31:56 injections. Recorded Pressure: Ao, HR=76, Condition=Condition 1 7:33:08 (Aorta) Ao 137/75/99 7:33:24 The LCA was injected and visualized at various angles. OMNIPAQUE, 350 MG, 150ML 150ML used. 7:34:55 Catheter was removed 7:35:32 HR=90 bpm, RCMD=974/88 mmhg, SpO2=98.0 %, Resp=25 B/min, Pain=0, Jonathan=10, Helton=2 A PIGTAIL STR INFINITI CATHETER FR 6 was advanced over a wire. OMNIPAQUE, 350 MG, 150ML 150ML wa s used for 7:35:32 injections. 7:36:13 power injector loaded now by edwin harris and verified by jakub artis Recorded Pressure: LV, HR=90, Condition=Condition 1 7:37:00 (Left Ventricle) LV 145/11/19 7:37:28 The LV was injected at 10 cc/sec for a total of 30. OMNIPAQUE, 350 MG, 150ML 150ML used. Recorded Pressure: LV, Ao, HR=89, Condition=Condition 1 7:38:42 (Left Ventricle) LV 141/14/21, (Aorta) Ao 161/88/121 7:39:25 Catheter was removed A AR MOD INFINITI CATHETER FR 6 was advanced over a wire. OMNIPAQUE, 350 MG, 150ML 150ML was us ed for 7:39:41 injections. 7:40:35 HR=88 bpm, TXBY=963/90 mmhg, SpO2=97.0 %, Resp=11 B/min, Pain=0, Jonathan=10, Helton=2 7:43:05 Catheter was removed 7:43:40 power injector loaded again for an aortic root image A PIGTAIL STR INFINITI CATHETER FR 6 was advanced over a wire. OMNIPAQUE, 350 MG, 150ML 150ML w as used for 7:44:11 injections. 7:45:39 HR=89 bpm, UCIH=187/90 mmhg, SpO2=96.0 %, Resp=9 B/min, Pain=0, Jonathan=10, Helton=2 7:46:01 The Asc. Aorta (A) was injected at 20 cc/sec for a total of 40. OMNIPAQUE, 350 MG, 150ML 15 0ML used. 7:46:32 Catheter was removed 7:46:43 An injection in the Fem Art (right) was made through the SHEATH, FR6.5 PRELUDE 11CM FR 6.5. Assessment: Final Case, HR=88 BPM, Rhythm=reg, MQAP=704/90 mmhg, Chest Pain=0, Edema=None, [place] r=Normal, Skin = Warm Right Pulses: Jona Ped=2, Femoral=2 Left Pulses: Jona Ped=2, Femoral=2 7:46:50 Lower Right Extremities: Color=Normal Lower Left Extremities: Color=Normal Neurological: State=Alert, Ox3, ELLISON Respiration: Resp=22 B/min, SpO2=95 % 7:47:19 Catheter(s) removed without difficulty 7:47:25 VASCADE, FR6 CLOSURE SYSTEM FR 6\7 placement in the Fem Art (right) 7:47:32 Case End 7:47:34 Sterile dressing applied to site 7:47:35 No case complications noted. 7:47:36 Cine recording checked. 7:47:39 Bedside Report will be given. 7:47:43 Contrast Scanned 7:48:20 Verbal Stimulation=2 Physical Stimulation=2 Airway=2 Respiration=2 TOTAL=8. (0=absent, 1=li mited, 2=present) 7:50:38 HR=90 bpm, RTHI=360/92 mmhg, SpO2=95.0 %, Resp=25 B/min, Pain=0, Jonathan=10, Helton=2 7:54:08 Sterile dressing applied to site 7:55:39 ATML=994/81 mmhg, Pain=0, Jonathan=10, Helton=2 7:56:04 Vitals capture stopped. 7:58:06 Patient moved to [facility] End Study - Contrast Media Used In Study Contrast Total Opened (mL) Total Used (mL) Total Wasted (mL) Omnipaque 175 175 0 End Study - Maximum Contrast Load Max Contrast Load (mL) 405.0 End Study - Radiation Exposure Fluoro Time (minutes) 5.3 End Study - Sheaths Sheaths Pulled By Sheath Hold Time (min) Manohar Radford End Study - Patient Disposition Complications Transferred To Interventional Outcome No Critical Care Bed No attempt made
[2017-06-14] MEDS ORDERED: ATROPINE SULFATE 1 MG/ML VIAL IV PRN (08:00)
[2017-06-14] MEDS ORDERED: SODIUM CHLOR 0.9% 250 ML INJ 250 ML IV PRN (08:00)
[2017-06-14] MEDS ORDERED: MISC INFORMATION XX ONE (08:00)
[2017-06-14 08:26] LABS: BICARBONATE 23.3 MEQ/L (21.0-32.0); CALCIUM 8.1 MG/DL (8.5-10.1); CREATININE 0.87 MG/DL (0.50-1.00); PHOSPHORUS 2.1 MG/DL (2.5-4.9)
--- NOTE | 2017-06-14 08:31 | MA ---
cc: ALMA ROSA BILLINGS MD, GLENN H. M.D. DATE: 06/14/2017 Cc: PROCEDURE Left heart catheterization, selective coronary angiography, left ventriculography, aortic root injection. PROCEDURE NOTES The patient was brought to the cardiac catheterization laboratory in a fasting state after having signed informed consent. The right groin was prepped and draped as per policy and anesthetized with 1% lidocaine. Arterial access was obtained via the right femoral artery and a 6-Montenegrin sheath placed. Coronary arteriography was performed using 6-Montenegrin Little left 4.0. We were unable to engage the right coronary artery so an aortic root shot was taken. Left ventriculography was done using a standard 6-Montenegrin pigtail. There were no apparent immediate complications. Her arteriotomy site was closed with VASCADE. HEMODYNAMIC RESULTS Left ventricle 141 with an end-diastolic pressure of 14. Aorta 161/88 with a mean of 121. There was no significant transvalvular aortic gradient on pullback of the pigtail catheter. CORONARY ARTERIOGRAPHY The left main may have up to 40% ostial stenosis. There is no pressure dampening on engagement of the left main. There is also 30% distal left main disease. The left anterior descending is diffusely and severely diseased. There is at least 80% stenosis proximally, 80% stenosis in its midportion and 80-90% disease distally. The LAD gives rise to tiny diagonals one of which has severe ostial disease. The left circumflex is a fairly large vessel giving rise to a relatively small obtuse marginal. This obtuse marginal has severe diffuse proximal disease resulting in up to 95% stenosis. The mid-left circumflex has 30% disease. The right coronary artery could not be engaged. Aortic root injection confirms total occlusion of this vessel, likely at its ostium. There are fair to good ttgv-vw-gutrh collaterals. LEFT VENTRICULOGRAPHY Contrast injection of the left ventricle reveals no definite segmental wall motion abnormalities. Ejection fraction is estimated at 55%. CONCLUSIONS 1. Severe three-vessel coronary disease. 2. Right dominant system. 3. Normal left ventricular function with estimated ejection fraction of 55%. DISCUSSION The patient has severe disease, not readily amendable to percutaneous intervention. On the other hand, she has very poor target vessels for bypass grafting. Recommend consider medical therapy. Cardiovascular surgery consultation will also be obtained. MD YANICK Cortes /7:51 AM /8:08 AM MTDBritney
--- NOTE | 2017-06-14 08:55 | HHI.CCPN ---
Subjective Remarks/Hospital Course 62-year-old female with no history significant of coronary artery disease presents with chest pain, per patient initially the elephant was sitting on her chest without radiation, later in the emergency department where she felt improving, she developed sudden onset of crushing chest pain radiating to her shoulders, she became diaphoretic, pale and hypotensive. The EKG shows diffuse ST elevations and the patient relations representative correctional officer chief was notified for STEMI alert. She was treated with morphine, Ativan, nitroglycerin, beta mary ellen with improvement of her symptoms. However shortly after she vomited about half cup of fresh bright red blood. The patient relations representative on-call canceled a STEMI alert and patient is admitted to ICU with conservative management. 06/13 No events overnight. On Heparin and Nitro drip. Patient denies any CP/SOB. Trop increased 14.5 early this morning. For EGD today. 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 HAd EGD yesterday showed esophagitis, Sasha Watt tear in distal esophagus. On Protonix drip. T:100.4 last night. Objective Vital Signs Date Time Temp Pulse Resp B/P (MAP) Pulse Ox O2 Delivery O2 Flow Rate FiO2 06/14/17 06:00 73 06/14/17 04:00 100.0 20 141/84 (103) 96 06/13/17 12:30 Nasal Cannula 2 06/12/17 21:45 21 Intake and Output 06/14/17 06/14/17 06/15/17 08:00 16:00 00:00 Intake Total 100 ml Output Total 800 ml Balance -700 ml Result Diagram: 06/14/17 0653 06/14/17 0653 Other Results Laboratory Tests Test 06/13/17 22:20 06/14/17 06:53 Urine Color LIGHT-YELLOW Urine Turbidity CLEAR Urine pH 5.5 Urine Specific [place] 1.010 Urine Protein NEG mg/dL Urine Glucose (UA) NEG mg/dL Urine Ketones NEG mg/dL Urine Occult Blood NEG Urine Nitrite NEG Urine Bilirubin NEG Urine Urobilinogen LESS THAN 2.0 MG/DL Urine Leukocyte Esterase SMALL Urine RBC LESS THAN 1 /hpf Urine WBC 2 /hpf Urine Squamous Epithelial Cells 1 /hpf Urine Mucus FEW /lpf Microscopic Urinalysis Comment CATH-CULT NOT IND White Blood Count 11.1 TH/MM3 Red Blood Count 3.55 MIL/MM3 Hemoglobin 11.3 GM/DL Hematocrit 33.4 % Mean Corpuscular Volume 94.1 FL Mean Corpuscular Hemoglobin 31.8 PG Mean Corpuscular Hemoglobin Concent 33.8 % Red Cell Distribution Width 14.3 % Platelet Count 222 TH/MM3 Mean Platelet Volume 8.3 FL Neutrophils (%) (Auto) 61.8 % Lymphocytes (%) (Auto) 25.8 % Monocytes (%) (Auto) 11.3 % Eosinophils (%) (Auto) 0.7 % Basophils (%) (Auto) 0.4 % Neutrophils # (Auto) 6.8 TH/MM3 Lymphocytes # (Auto) 2.8 TH/MM3 Monocytes # (Auto) 1.3 TH/MM3 Eosinophils # (Auto) 0.1 TH/MM3 Basophils # (Auto) 0.0 TH/MM3 CBC Comment DIFF FINAL Differential Comment Activated Partial Thromboplast Time 71.1 SEC Blood Urea Nitrogen 9 MG/DL Creatinine 0.87 MG/DL Random Glucose 100 MG/DL Calcium Level 8.1 MG/DL Phosphorus Level 2.1 MG/DL Sodium Level 140 MEQ/L Potassium Level 3.2 MEQ/L Chloride Level 110 MEQ/L Carbon Dioxide Level 23.3 MEQ/L Anion Gap 7 MEQ/L Estimat Glomerular Filtration Rate 66 ML/MIN Imaging Last Impressions Chest X-Ray 06/11/172046 Signed Impressions: Service Date/Time: Sunday, June 11, 2017 21:06 - CONCLUSION: No acute disease. Sergey Reis MD Aorta CTA 06/11/17 0000 Signed Impressions: Service Date/Time: Sunday, June 11, 2017 23:38 - CONCLUSION: 1. Normal aorta without evidence for aneurysm or dissection. 2. No evidence of pulmonary embolism to the proximal segmental level. 3. Minimal bibasilar groundglass opacities, likely atelectasis. 4. Coronary calcifications. 5. Cholelithiasis. 6. Small fat containing anterior abdominal periumbilical hernia. Patrick Montiel MD Objective Remarks GENERAL: Well-nourished, well-developed patient. SKIN: Warm and dry. HEAD: Normocephalic. EYES: No scleral icterus. No injection or drainage. NECK: Supple, trachea midline. No JVD or lymphadenopathy. CARDIOVASCULAR: Regular rate and rhythm without murmurs, gallops, or rubs. RESPIRATORY: Breath sounds equal bilaterally. No accessory muscle use. GASTROINTESTINAL: Abdomen soft, non-tender, nondistended. MUSCULOSKELETAL: No cyanosis, or edema. BACK: Nontender without obvious deformity. NEURO EXAM: GCS: 15 Mental Status: The patient is alert and oriented to person, place, and time with normal speech. A/P Assessment and Plan Acute coronary syndrome Hematemesis Leukocytosis Anemia Hypophos Depression/anxiety Plan Neuro: Awake and alert Pulm: Oxygen PRN keep sat >92% Bronchodilators CV: Monitor HR and BP keep MAP>65mmHg Monitor trop, echo showed EF 50-55%, Cards is following. Continue with Heparin drip monitor PTT. 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 CTS consulted for evaluation of CABG on Lopressor 12.5mg BID, ASA, Lipitor, Aldactone . : Monitor renal function, I/O's, electrolytes replacement per protocol. Will need K, phos replacement GI: On Protonix drip. GI is following S/P EGD 06/13: Esophagitis, Sasha Watt tear in distal esophagus Heme: Monitor CBC, transfuse if Hgb <8 ID: Place on Rocephin and monitor for signs of infections ( Fever, WBC) CXR on admission no acute disease Endo: SSI if needed for glycemic control GI prophylaxis- On Protonix DVT prophylaxis- On Heparin drip. Level.3 Rubi Marie MD Jun 14, 2017 08:55
[2017-06-14] MEDS ORDERED: IOHEXOL 350 MG/ML 100 ML BTL (for Cath Lab) OTHER ONE (08:57)
[2017-06-14] MEDS ORDERED: IOHEXOL 350 MG/ML 50 ML BTL (for Cath Lab) OTHER ONE (08:57)
[2017-06-14] MEDS: cefTRIAXone INJ 1,000 MG in SODIUM CHLORIDE 0.9% INJ 100 ML IV SCH (09:49)
[2017-06-14] MEDS: SODIUM CHLORIDE 0.9% FLUSH 10 ML FLUSH IV FLUSH SCH ×2 (09:49→21:11)
[2017-06-14] MEDS: buPROPion HCL 150 MG SUSTAINED RELEASE TAB PO SCH ×2 (12:35→21:10)
[2017-06-14] MEDS: ASPIRIN EC 81 MG TABEC PO SCH (12:35)
[2017-06-14] MEDS: ATORVASTATIN 80 MG TAB PO SCH (12:35)
[2017-06-14] MEDS: DOCUSATE SODIUM 50 MG/SENNA 8.6 MG TAB PO SCH ×2 (12:36→21:10)
[2017-06-14] MEDS: CHOLECALCIFEROL (VIT D3) 1000 UNIT TAB PO SCH (12:36)
[2017-06-14] MEDS: METOPROLOL TARTRATE 25 MG TAB PO SCH ×2 (12:36→21:11)
[2017-06-14] MEDS: SPIRONOLACTONE 25 MG TAB PO SCH ×2 (12:39→17:43)
--- NOTE | 2017-06-14 14:49 | HHI.GIFU ---
Subjective Remarks Pt resting in bed in NAD, napping. just back from cardiac cath procedure, no stent placed. ATe some hamburger for lunch. No GI complaints (Carolyne Ridley) Objective Vitals I&O Vital Signs Date Time Temp Pulse Resp B/P (MAP) Pulse Ox O2 Delivery O2 Flow Rate FiO2 06/14/17 12:00 85 06/14/17 12:00 98.7 85 25 121/80 (94) 97 06/14/17 11:50 98.7 79 23 121/80 (94) 97 06/14/17 10:50 97.9 79 20 128/67 (87) 96 06/14/17 10:00 76 06/14/17 09:50 78 18 129/64 (85) 97 06/14/17 09:25 97.9 75 20 129/65 (86) 98 06/14/17 08:55 75 21 149/71 (97) 98 06/14/17 08:40 97.8 74 20 143/71 (95) 99 06/14/17 08:25 97.9 85 16 144/70 (94) 96 06/14/17 08:10 97.8 75 18 138/69 (92) 98 06/14/17 08:00 75 06/14/17 08:00 97.9 72 20 147/91 (109) 97 06/14/17 07:33 Nasal Cannula 06/14/17 06:00 73 06/14/17 04:00 69 06/14/17 04:00 100.0 69 20 141/84 (103) 96 06/14/17 02:00 69 06/14/17 00:00 69 06/14/17 00:00 100.1 67 19 121/78 (92) 98 06/13/17 22:00 71 06/13/17 20:00 76 06/13/17 20:00 100.4 76 19 141/76 (97) 98 06/13/17 18:00 101 06/13/17 17:00 77 06/13/17 16:00 100.2 85 24 146/78 (100) 98 06/13/17 16:00 85 06/13/17 15:00 91 I/O 06/13/17 06/13/17 06/13/17 06/14/17 06/14/17 06/14/17 07:00 15:00 23:00 07:00 15:00 23:00 Intake Total 1650 ml 600 ml 569.0 ml 350 ml 100 ml Output Total 525 ml 3000 ml 800 ml Balance 1125 ml 600 ml -2431.0 ml -450 ml 100 ml Intake Oral 350 ml 0 ml IV Total 1650 ml 0 ml 219.0 ml 350 ml 100 ml Other 600 ml Output Urine Total 525 ml 3000 ml 800 ml # Voids 1 # Bowel Movements 0 0 Laboratory Laboratory Tests Test 06/13/17 22:20 06/14/17 06:53 Urine Color LIGHT-YELLOW Urine Turbidity CLEAR Urine pH 5.5 Urine Specific [place] 1.010 Urine Protein NEG Urine Glucose (UA) NEG Urine Ketones NEG Urine Occult Blood NEG Urine Nitrite NEG Urine Bilirubin NEG Urine Urobilinogen LESS THAN 2.0 Urine Leukocyte Esterase SMALL Urine RBC LESS THAN 1 Urine WBC 2 Urine Squamous Epithelial Cells 1 Urine Mucus FEW Microscopic Urinalysis Comment CATH-CULT NOT IND White Blood Count 11.1 Red Blood Count 3.55 Hemoglobin 11.3 Hematocrit 33.4 Mean Corpuscular Volume 94.1 Mean Corpuscular Hemoglobin 31.8 Mean Corpuscular Hemoglobin Concent 33.8 Red Cell Distribution Width 14.3 Platelet Count 222 Mean Platelet Volume 8.3 Neutrophils (%) (Auto) 61.8 Lymphocytes (%) (Auto) 25.8 Monocytes (%) (Auto) 11.3 Eosinophils (%) (Auto) 0.7 Basophils (%) (Auto) 0.4 Neutrophils # (Auto) 6.8 Lymphocytes # (Auto) 2.8 Monocytes # (Auto) 1.3 Eosinophils # (Auto) 0.1 Basophils # (Auto) 0.0 CBC Comment DIFF FINAL Differential Comment Activated Partial Thromboplast Time 71.1 Blood Urea Nitrogen 9 Creatinine 0.87 Random Glucose 100 Calcium Level 8.1 Phosphorus Level 2.1 Sodium Level 140 Potassium Level 3.2 Chloride Level 110 Carbon Dioxide Level 23.3 Anion Gap 7 Estimat Glomerular Filtration Rate 66 Imaging Last Impressions Chest X-Ray 06/11/172046 Signed Impressions: Service Date/Time: Sunday, June 11, 2017 21:06 - CONCLUSION: No acute disease. Sergey Reis MD Aorta CTA 06/11/17 0000 Signed Impressions: Service Date/Time: Sunday, June 11, 2017 23:38 - CONCLUSION: 1. Normal aorta without evidence for aneurysm or dissection. 2. No evidence of pulmonary embolism to the proximal segmental level. 3. Minimal bibasilar groundglass opacities, likely atelectasis. 4. Coronary calcifications. 5. Cholelithiasis. 6. Small fat containing anterior abdominal periumbilical hernia. Patrick Montiel MD Physical Exam HEENT: PERRL; normocephalic; atraumatic; no jaundice. CHEST: CTA CARDIAC: RRR ABDOMEN: Soft, nondistended, nontender; no hepatosplenomegaly; bowel sounds are present in all four quadrants. EXTREMITIES: No clubbing, cyanosis, or edema. SKIN: Normal; no rash; no jaundice. ART CONSERVATOR: mildly lethargic (Carolyne Ridley) Assessment and Plan Plan - Hematemesis, abd pain - valentin soares tear, esophagitis. s/p EGD 06/13/17 showed MW tear, class A esophagitis HH relatively stable - STEMI alert/ SEAN- Due to Gi bleed, Stemi alert was canceled and recommended conservative management. s/p cath procedure Plan: - Diet per attending - PPI - ok to restart anticoag - ok to continue cardiac w/u - Supportive care - Patient seen and examined by and myself and this note is written on his behalf (Carolyne Ridley) Physician Comments Seen and examined with JARON, no bleeding. Cardiac bernstein in progress. Protonix 40mg daily. GI will sign off, reconsult as needed. Gi fu upon dc. Thankyou (Mahi Schulz MD) Carolyne Ridley Jun 14, 2017 14:49 Mahi Schulz MD Jun 14, 2017 17:23
--- NOTE | 2017-06-14 17:49 | EKG ---
Date Performed: 06/13/2017 Time Performed: 12:29:54 PTAGE: 62 years EKG: Sinus rhythm NONSPECIFIC ST & T-WAVE ABNORMALITY BORDERLINE ECG PREVIOUS TRACING : 06/12/2017 10.22 DOCTOR: Yenny Goff Interpretating Date/Time 06/14/2017 17:39:43
[2017-06-14 23:59] LABS: PHOSPHORUS 2.7 MG/DL (2.5-4.9)
[2017-06-15] VITALS (13 sets, daily range): BP systolic 114–156; BP diastolic 64–81; PULSE 73–92; RESP 18–25; TEMP 99–100.5; O2SAT 96–100
[2017-06-15] MEDS: SODIUM CHLOR 0.9% 1000 ML INJ 1,000 ML IV SCH ×2 (01:34→16:02)
[2017-06-15] MEDS: POTASSIUM CHLORIDE 25 MEQ EFFERVESCENT TAB PO PRN (04:16)
[2017-06-15] MEDS: METOCLOPRAMIDE HCL 10 MG/2 ML VIAL IV PUSH SCH ×3 (06:54→21:34)
[2017-06-15 07:25] LABS: HEMATOCRIT 33.7 % (35.0-46.0); HEMOGLOBIN 11.4 GM/DL (11.6-15.3); MEAN CELL VOLUME 93.4 FL (80.0-100.0); MEAN CORPUSCULAR HEMOGLOBIN 31.5 PG (27.0-34.0); MEAN CORPUSCULAR HGB CONC 33.8 % (32.0-36.0); MEAN PLATELET VOLUME 7.8 FL (7.0-11.0); PLATELET COUNT 210 TH/MM3 (150-450); RED BLOOD COUNT 3.61 MIL/MM3 (4.00-5.30); WHITE BLOOD COUNT 12.1 TH/MM3 (4.0-11.0)
[2017-06-15 07:54] LABS: BICARBONATE 23.2 MEQ/L (21.0-32.0); CREATININE 0.97 MG/DL (0.50-1.00); MAGNESIUM 2.2 MG/DL (1.5-2.5)
[2017-06-15 07:55] LABS: PHOSPHORUS 1.9 MG/DL (2.5-4.9)
[2017-06-15] MEDS: METOPROLOL TARTRATE 25 MG TAB PO SCH ×2 (08:48→21:32)
[2017-06-15] MEDS: SPIRONOLACTONE 25 MG TAB PO SCH ×2 (08:48→17:04)
[2017-06-15] MEDS: CHOLECALCIFEROL (VIT D3) 1000 UNIT TAB PO SCH (08:48)
[2017-06-15] MEDS: buPROPion HCL 150 MG SUSTAINED RELEASE TAB PO SCH ×2 (08:48→21:35)
[2017-06-15] MEDS: ATORVASTATIN 80 MG TAB PO SCH (08:48)
[2017-06-15] MEDS: DOCUSATE SODIUM 50 MG/SENNA 8.6 MG TAB PO SCH ×2 (08:48→21:00)
[2017-06-15] MEDS: ASPIRIN EC 81 MG TABEC PO SCH (08:48)
[2017-06-15] MEDS: cefTRIAXone INJ 1,000 MG in SODIUM CHLORIDE 0.9% INJ 100 ML IV SCH (08:50)
[2017-06-15] MEDS: SODIUM CHLORIDE 0.9% FLUSH 10 ML FLUSH IV FLUSH SCH ×2 (08:51→21:31)
[2017-06-15] MEDS: PANTOPRAZOLE INJ 80 MG in SODIUM CHLORIDE 0.9% INJ 100 ML IV SCH ×2 (09:05→18:19)
--- NOTE | 2017-06-15 10:19 | MB ---
cc: LIS ESCALERA MD DATE OF CONSULTATION 06/15/2017 HISTORY OF PRESENT ILLNESS This is a 62-year-old female admitted on 06/11/2017, who was complaining of substernal chest discomfort that have been ongoing for 24 hours prior to presentation, described as a burning in the middle of her chest, left parasternal area, without associated shortness of breath, diaphoresis or nausea. The pain became worse in intensity and when she came in they noted some acute inferior ST elevation in the inferior leads. The called a code STEMI but then she developed some hematemesis so the cardiac cath was cancelled at that time. She was seen by GI and underwent an EGD by Dr. Schulz which showed a Sasha-Watt tear in the distal esophagus. It was recommended that antireflux regimen be continued with a proton pump inhibitor and repeat EGD in three months. She then underwent a cardiac cath by Dr. Radford on 06/14/2017 which showed an ejection fraction of 55%, left main disease of 40%, proximal LAD 80%, distal LAD 80%, diagonal 90%, circumflex 30%, obtuse marginal 95%, RCA 100%. Per his note she had very poor target vessels for bypass grafting and is recommending medical therapy at this time. PAST MEDICAL HISTORY Hyperlipidemia. PAST SURGICAL HISTORY 1. Right shoulder surgery. 2. Bilateral carpal tunnel release. 3. Right trigger thumb surgery. 4. Left knee arthroscopy. 5. Tonsillectomy. ALLERGIES She has no known allergies. MEDICATIONS 1. Lipitor. 2. Aldactone. SOCIAL HISTORY Mother at 58 from heart disease and complications of diabetes. SOCIAL HISTORY . Two children. 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 Smoked for about 10 years, quit 30 years ago. No alcohol. REVIEW OF SYSTEMS GENERAL: In general no night sweats, fever, heat or cold intolerance. SKIN: No psoriasis, itching or hives. HEENT: No blurred vision or hearing loss. RESPIRATORY: No cough or shortness of breath. CARDIOVASCULAR: As above in the HPI. GASTROINTESTINAL: As above in the HPI. GENITOURINARY: No burning, frequency, urgency. PRESCHOOL TEACHER: No history of TIA, CVA, seizure disorder. ENDOCRINE: No history of diabetes or hypothyroidism. PHYSICAL EXAMINATION VITAL SIGNS: Blood pressure 120/60, heart rate 80, temperature max 99.2, O2 sat 96% on room air. GENERAL: The patient is awake, alert, in no acute distress. HEENT: Head is normocephalic, atraumatic. Pupils equal and reactive. Oral mucosa pink and moist. NECK: Supple. No JVD. HEART: Heart sounds S1, S2, regular rate and rhythm. No audible rubs, murmurs or gallops. LUNGS: Clear to auscultation. No wheezes, rales or rhonchi. ABDOMEN: Soft, nontender. No masses or organomegaly. EXTREMITIES: No cyanosis, clubbing or edema. LABORATORY Hemoglobin 11, hematocrit 34, white cell count 12, platelet count 210. Sodium 142, potassium 4.1, BUN 7, creatinine 0.97, glucose 153, phosphorus 1.9, magnesium 2.2. INR 1.1. Urinalysis unremarkable. MRSA screen negative. IMAGING Aorta CTA: Some minimal atelectasis. Some coronary calcification. Cholelithiasis. Normal aorta without evidence of aneurysmal dissection. No pulmonary emboli. IMPRESSION AND RECOMMENDATIONS This is a 62-year-old female with multivessel disease, ejection fraction 55%. The cardiac films have been reviewed by Dr. Lis Escalera. Apparently the patient has very poor targets to make her a candidate for coronary artery bypass grafting. Evaluation for medical therapy at this time. Further discussion as per Dr. Lis Escalera. Would maximize medical therapy with statin, aspirin and beta mary ellen. Dictated by: LISANDRA Sahni Agree with above. Coronary angiogram reveals severe and diffuse disease involving all of her coronary vessels which are not amenable to bypass surgery. Recommend optimizing her medical regimen. Should her symptoms persist, we maybe able to entertain the option of transmyocardial laser revascularization therapy (TMR) following resolution of her AMI. Lis BLISS /9:40 AM /10:00 AM BARRON
[2017-06-15] MEDS: SODIUM PHOSPHATE INJ 30 MMOL in SODIUM CHLOR 0.9% 250 ML INJ 240 ML IV PRN (13:31)
--- NOTE | 2017-06-15 23:54 | HHI.CCPN ---
Subjective Remarks/Hospital Course 62-year-old female with no history significant of coronary artery disease presents with chest pain, per patient initially the elephant was sitting on her chest without radiation, later in the emergency department where she felt improving, she developed sudden onset of crushing chest pain radiating to her shoulders, she became diaphoretic, pale and hypotensive. The EKG shows diffuse ST elevations and the high density finishing operator avionics engineer was notified for STEMI alert. She was treated with morphine, Ativan, nitroglycerin, beta mary ellen with improvement of her symptoms. However shortly after she vomited about half cup of fresh bright red blood. The high density finishing operator on-call canceled a STEMI alert and patient is admitted to ICU with conservative management. 06/13 No events overnight. On Heparin and Nitro drip. Patient denies any CP/SOB. Trop increased 14.5 early this morning. For EGD today. 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 HAd EGD yesterday showed esophagitis, Sasha Watt tear in distal esophagus. On Protonix drip. T:100.4 last night. Subjective 06/15: Currently resting in bed in no acute distress. Afebrile. Tolerating diet. No further episodes of chest pain since admission. Objective Vital Signs Date Time Temp Pulse Resp B/P (MAP) Pulse Ox O2 Delivery O2 Flow Rate FiO2 06/15/17 22:00 90 06/15/17 20:00 99.0 18 156/80 (105) 100 06/14/17 20:02 21 06/14/17 07:33 Nasal Cannula 06/13/17 12:30 2 Intake and Output 06/15/17 06/15/17 06/16/17 08:00 16:00 00:00 Intake Total 565 ml 100 ml 500 ml Output Total 1600 ml Balance 565 ml 100 ml -1100 ml Result Diagram: 06/15/1737 06/15/17636 Imaging Last Impressions Chest X-Ray 06/11/172046 Signed Impressions: Service Date/Time: Sunday, June 11, 2017 21:06 - CONCLUSION: No acute disease. Sergey Reis MD Aorta CTA 06/11/17 0000 Signed Impressions: Service Date/Time: Sunday, June 11, 2017 23:38 - CONCLUSION: 1. Normal aorta without evidence for aneurysm or dissection. 2. No evidence of pulmonary embolism to the proximal segmental level. 3. Minimal bibasilar groundglass opacities, likely atelectasis. 4. Coronary calcifications. 5. Cholelithiasis. 6. Small fat containing anterior abdominal periumbilical hernia. Patrick Montiel MD Objective Remarks GENERAL: This is a 62-year-old female currently resting in bed in no acute SKIN: Warm and dry. No rash HEAD: Normocephalic. EYES: No scleral icterus. No injection or drainage. NECK: Supple, trachea midline. No JVD or lymphadenopathy. CARDIOVASCULAR: Regular rate and rhythm without murmurs, gallops, or rubs. RESPIRATORY: Breath sounds equal bilaterally. No accessory muscle use. GASTROINTESTINAL: Abdomen soft, non-tender, nondistended. MUSCULOSKELETAL: No significant peripheral BACK: Nontender without obvious deformity. NEURO EXAM: Cranial nerves II through XII grossly intact. Strength is equal symmetric. Normal sensation Urinary Catheter: No Assessment to: Continue Vascular Central Line Catheter: No Assessment to: Continue A/P Assessment and Plan Neuro/Psych: Depression/anxiety Continue bupropion 150 mg by mouth twice a day Acetaminophen 650 mg by mouth every 6 hours when necessary pain 1-5/fever Awake and alert Pulm: Oxygen PRN keep sat >92% Albuterol/ipratropium aerosols every 6 hours with albuterol aerosols every 2 hours as needed for dyspnea CV: ACS 3V CAD Hypertension dyslipidemia Monitor HR and BP keep MAP>65mmHg Monitor trop, echo showed EF 50-55%, Heparin subcutaneous for DVT prophylaxis S/p cardiac 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 EF 55% CTS consulted for evaluation of CABG. Recommended medical management. Possible candidate for TMR wants stabilizes Continue Lopressor 12.5mg BID, ASA 162 mg daily, atorvastatin 80 mg daily and Aldactone 25 mg twice a day/home medications FEN/: Monitor renal function, I/O's, electrolytes replacement per protocol. GI: Sasha Watt tear Grade a LA esophagitis Cholelithiasis Hypoalbuminemia Advance diet as tolerated Remains on pantoprazole drip. GI okay discontinue 06/13. We'll switch to 40 mg by mouth daily S/P EGD 06/13: Esophagitis, Sasha Watt tear in distal esophagus Heme: Leukocytosis Normocytic anemia Monitor CBC, transfuse if Hgb <8 ID: Empirically on ceftriaxone and monitor for signs of infections ( Fever, WBC) UA and CXR on admission no acute disease Endo: SSI if needed for glycemic control MSK: Elevated BMI Wt loss encouraged. GI prophylaxis- On pantoprazole DVT prophylaxis- On heparin subcutaneous Level II follow-up Patient is stable from a critical care medicine standpoint. Assign care to hospitalist in a.m. 06/17. Okay to transfer out of ICU Esa Medeiros MD Jun 15, 2017 23:54
[2017-06-16] VITALS (12 sets, daily range): BP systolic 103–147; BP diastolic 57–77; PULSE 60–84; RESP 16–28; TEMP 98.4–100.7; O2SAT 96–100
[2017-06-16] MEDS: CHLORHEXIDINE GLUCONATE 2 % 1 PACK (2 CLOTHS) TOP SCH (04:00)
[2017-06-16 05:45] LABS: HEMATOCRIT 33.9 % (35.0-46.0); HEMOGLOBIN 11.7 GM/DL (11.6-15.3); MEAN CELL VOLUME 91.1 FL (80.0-100.0); MEAN CORPUSCULAR HEMOGLOBIN 31.5 PG (27.0-34.0); MEAN CORPUSCULAR HGB CONC 34.5 % (32.0-36.0); MEAN PLATELET VOLUME 7.4 FL (7.0-11.0); PLATELET COUNT 235 TH/MM3 (150-450); RED BLOOD COUNT 3.72 MIL/MM3 (4.00-5.30); RED CELL DISTRIBUTION WIDTH 13.8 % (11.6-17.2)
[2017-06-16] MEDS: HEPARIN SODIUM - SQ 10,000 UNITS/ML VIAL SQ SCH ×3 (05:45→20:35)
[2017-06-16 06:24] LABS: BICARBONATE 23.5 MEQ/L (21.0-32.0); CALCIUM 8.1 MG/DL (8.5-10.1); CREATININE 0.8 MG/DL (0.50-1.00); MAGNESIUM 2.2 MG/DL (1.5-2.5); PHOSPHORUS 2.8 MG/DL (2.5-4.9)
[2017-06-16] MEDS: DOCUSATE SODIUM 50 MG/SENNA 8.6 MG TAB PO SCH ×2 (09:00→20:36)
[2017-06-16] MEDS: cefTRIAXone INJ 1,000 MG in SODIUM CHLORIDE 0.9% INJ 100 ML IV SCH (09:13)
[2017-06-16] MEDS: POTASSIUM CHLORIDE 25 MEQ EFFERVESCENT TAB PO PRN (09:19)
[2017-06-16] MEDS: buPROPion HCL 150 MG SUSTAINED RELEASE TAB PO SCH ×2 (09:19→20:35)
[2017-06-16] MEDS: CHOLECALCIFEROL (VIT D3) 1000 UNIT TAB PO SCH (09:19)
[2017-06-16] MEDS: ATORVASTATIN 80 MG TAB PO SCH (09:20)
[2017-06-16] MEDS: METOPROLOL TARTRATE 25 MG TAB PO SCH ×2 (09:20→20:35)
[2017-06-16] MEDS: ASPIRIN EC 81 MG TABEC PO SCH (09:20)
[2017-06-16] MEDS: PANTOPRAZOLE SOD 40 MG DELAYED RELEASE TAB PO SCH (09:20)
[2017-06-16] MEDS: SPIRONOLACTONE 25 MG TAB PO SCH ×2 (09:20→18:14)
[2017-06-16] MEDS: SODIUM CHLORIDE 0.9% FLUSH 10 ML FLUSH IV FLUSH SCH ×2 (09:21→20:36)
--- NOTE | 2017-06-16 16:33 | HHI.CCPN ---
Subjective Remarks/Hospital Course 62-year-old female with no history significant of coronary artery disease presents with chest pain, per patient initially the elephant was sitting on her chest without radiation, later in the emergency department where she felt improving, she developed sudden onset of crushing chest pain radiating to her shoulders, she became diaphoretic, pale and hypotensive. The EKG shows diffuse ST elevations and the foundry worker telephone services sales representative was notified for STEMI alert. She was treated with morphine, Ativan, nitroglycerin, beta mary ellen with improvement of her symptoms. However shortly after she vomited about half cup of fresh bright red blood. The foundry worker on-call canceled a STEMI alert and patient is admitted to ICU with conservative management. 06/13 No events overnight. On Heparin and Nitro drip. Patient denies any CP/SOB. Trop increased 14.5 early this morning. For EGD today. 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 HAd EGD yesterday showed esophagitis, Sasha Watt tear in distal esophagus. On Protonix drip. T:100.4 last night. 06/15: Currently resting in bed in no acute distress. Afebrile. Tolerating diet. No further episodes of chest pain since admission. Subjective 06/16: Chest pain. Resting in bed in no acute distress. Afebrile. Ambulating in hallways. Objective Vital Signs Date Time Temp Pulse Resp B/P (MAP) Pulse Ox O2 Delivery O2 Flow Rate FiO2 06/16/17 10:00 83 06/16/17 08:00 99.8 28 126/68 (87) 96 06/14/17 20:02 21 06/14/17 07:33 Nasal Cannula 06/13/17 12:30 2 Intake and Output 06/16/17 06/16/17 06/17/17 08:00 16:00 00:00 Intake Total 120 ml Balance 120 ml Result Diagram: 06/16/1730 06/16/17 05 Imaging Last Impressions Chest X-Ray 06/11/172046 Signed Impressions: Service Date/Time: Sunday, June 11, 2017 21:06 - CONCLUSION: No acute disease. Sergey Reis MD Aorta CTA 06/11/17 0000 Signed Impressions: Service Date/Time: Sunday, June 11, 2017 23:38 - CONCLUSION: 1. Normal aorta without evidence for aneurysm or dissection. 2. No evidence of pulmonary embolism to the proximal segmental level. 3. Minimal bibasilar groundglass opacities, likely atelectasis. 4. Coronary calcifications. 5. Cholelithiasis. 6. Small fat containing anterior abdominal periumbilical hernia. Patrick Montiel MD Objective Remarks GENERAL: This is a 62-year-old female currently resting in bed in no acute SKIN: Warm and dry. No rash HEAD: Normocephalic. EYES: No scleral icterus. No injection or drainage. NECK: Supple, trachea midline. No JVD or lymphadenopathy. CARDIOVASCULAR: Regular rate and rhythm without murmurs, gallops, or rubs. RESPIRATORY: Breath sounds equal bilaterally. No accessory muscle use. GASTROINTESTINAL: Abdomen soft, non-tender, nondistended. Umbilical hernia is reducible. MUSCULOSKELETAL: No significant peripheral BACK: Nontender without obvious deformity. NEURO EXAM: Cranial nerves II through XII grossly intact. Strength is equal symmetric. Normal sensation A/P Assessment and Plan Neuro/Psych: Depression/anxiety Continue bupropion 150 mg by mouth twice a day Acetaminophen 650 mg by mouth every 6 hours when necessary pain 1-5/fever Awake and alert Pulm: Oxygen PRN keep sat >92% Albuterol/ipratropium aerosols every 6 hours with albuterol aerosols every 2 hours as needed for dyspnea CV: ACS 3V CAD Hypertension dyslipidemia Monitor HR and BP keep MAP>65mmHg Monitor trop, echo showed EF 50-55%, Heparin subcutaneous for DVT prophylaxis S/p cardiac 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 EF 55% CTS consulted for evaluation of CABG. Recommended medical management. Possible candidate for TMR wants stabilizes Continue Lopressor 12.5mg BID, ASA 162 mg daily, atorvastatin 80 mg daily and Aldactone 25 mg twice a day/home medications FEN/: Monitor renal function, I/O's, electrolytes replacement per protocol. GI: Sasha Watt tear Grade a LA esophagitis Cholelithiasis Hypoalbuminemia Advance diet as tolerated Currently on pantoprazole 40 mg by mouth daily S/P EGD 06/13: Esophagitis, Sasha Watt tear in distal esophagus Heme: Leukocytosis Monitor CBC, transfuse if Hgb <8 ID: Empirically on ceftriaxone and monitor for signs of infections (Fever, WBC) UA and CXR on admission no acute disease Endo: SSI if needed for glycemic control MSK: Elevated BMI Wt loss encouraged. GI prophylaxis- On pantoprazole DVT prophylaxis- On heparin subcutaneous Level II follow-up Patient is stable from a critical care medicine standpoint. Assign care to hospitalist in a.m. 06/17. Okay to transfer out of ICU Esa Medeiros MD Jun 16, 2017 16:33
[2017-06-16] MEDS ORDERED: POTASSIUM CHLORIDE 10 MEQ CONTROLLED RELEASE TAB PO ONE (16:45)
[2017-06-17] VITALS (21 sets, daily range): BP systolic 102–140; BP diastolic 58–65; PULSE 62–98; RESP 18–28; TEMP 98.2–100.6; O2SAT 97–100
[2017-06-17] MEDS: HEPARIN SODIUM - SQ 10,000 UNITS/ML VIAL SQ SCH (06:46)
[2017-06-17 07:20] LABS: CALCIUM 8.3 MG/DL (8.5-10.1); CREATININE 0.99 MG/DL (0.50-1.00); MAGNESIUM 2.2 MG/DL (1.5-2.5); PHOSPHORUS 2.5 MG/DL (2.5-4.9)
[2017-06-17 07:29] LABS: HEMATOCRIT 35.8 % (35.0-46.0); HEMOGLOBIN 12.4 GM/DL (11.6-15.3); MEAN CORPUSCULAR HEMOGLOBIN 31.8 PG (27.0-34.0); MEAN CORPUSCULAR HGB CONC 34.6 % (32.0-36.0); MEAN PLATELET VOLUME 8.5 FL (7.0-11.0); PLATELET COUNT 224 TH/MM3 (150-450); RED BLOOD COUNT 3.89 MIL/MM3 (4.00-5.30); RED CELL DISTRIBUTION WIDTH 13.8 % (11.6-17.2); WHITE BLOOD COUNT 14.7 TH/MM3 (4.0-11.0)
[2017-06-17] MEDS: ASPIRIN EC 81 MG TABEC PO SCH (08:29)
[2017-06-17] MEDS: SPIRONOLACTONE 25 MG TAB PO SCH ×2 (08:29→17:55)
[2017-06-17] MEDS: METOPROLOL TARTRATE 25 MG TAB PO SCH ×2 (08:29→21:05)
[2017-06-17] MEDS: CHOLECALCIFEROL (VIT D3) 1000 UNIT TAB PO SCH (08:29)
[2017-06-17] MEDS: buPROPion HCL 150 MG SUSTAINED RELEASE TAB PO SCH ×2 (08:29→21:05)
[2017-06-17] MEDS: ATORVASTATIN 80 MG TAB PO SCH (08:30)
[2017-06-17] MEDS: DOCUSATE SODIUM 50 MG/SENNA 8.6 MG TAB PO SCH ×3 (08:30→21:41)
[2017-06-17] MEDS: PANTOPRAZOLE SOD 40 MG DELAYED RELEASE TAB PO SCH (08:30)
[2017-06-17] MEDS: SODIUM CHLORIDE 0.9% FLUSH 10 ML FLUSH IV FLUSH SCH ×2 (08:30→21:05)
[2017-06-17] MEDS: cefTRIAXone INJ 1,000 MG in SODIUM CHLORIDE 0.9% INJ 100 ML IV SCH (08:30)
--- NOTE | 2017-06-17 09:29 | HHI.CCPN ---
Subjective Remarks/Hospital Course 62-year-old female with no history significant of coronary artery disease presents with chest pain, per patient initially the elephmolly was sitting on her chest without radiation, later in the emergency department where she felt improving, she developed sudden onset of crushing chest pain radiating to her shoulders, she became diaphoretic, pale and hypotensive. The EKG shows diffuse ST elevations and the fund development manager solar fabrication technician was notified for STEMI alert. She was treated with morphine, Ativan, nitroglycerin, beta mary ellen with improvement of her symptoms. However shortly after she vomited about half cup of fresh bright red blood. The fund development manager on-call canceled a STEMI alert and patient is admitted to ICU with conservative management. 06/13 No events overnight. On Heparin and Nitro drip. Patient denies any CP/SOB. Trop increased 14.5 early this morning. For EGD today. 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 HAd EGD yesterday showed esophagitis, Sasha Watt tear in distal esophagus. On Protonix drip. T:100.4 last night. 06/15: Currently resting in bed in no acute distress. Afebrile. Tolerating diet. No further episodes of chest pain since admission. Subjective 06/16: Chest pain. Resting in bed in no acute distress. Afebrile. Ambulating in hallways. 06/17 No events overnight. reports pain, swelling LUE.Denies any CP/SOB. T:100.7 Objective Vital Signs Date Time Temp Pulse Resp B/P (MAP) Pulse Ox O2 Delivery O2 Flow Rate FiO2 06/17/17 08:59 100 06/17/17 06:00 76 06/17/17 04:00 100.6 24 135/65 (88) 06/14/17 20:02 21 06/14/17 07:33 Nasal Cannula 06/13/17 12:30 2 Intake and Output 06/17/17 06/17/17 06/17/17 07:59 15:59 23:59 Intake Total 300 ml Balance 300 ml Result Diagram: 06/17/17 0532 06/17/17 0532 Other Results Laboratory Tests Test 06/17/17 05:32 White Blood Count 14.7 TH/MM3 Red Blood Count 3.89 MIL/MM3 Hemoglobin 12.4 GM/DL Hematocrit 35.8 % Mean Corpuscular Volume 92.0 FL Mean Corpuscular Hemoglobin 31.8 PG Mean Corpuscular Hemoglobin Concent 34.6 % Red Cell Distribution Width 13.8 % Platelet Count 224 TH/MM3 Mean Platelet Volume 8.5 FL Blood Urea Nitrogen 9 MG/DL Creatinine 0.99 MG/DL Random Glucose 97 MG/DL Calcium Level 8.3 MG/DL Phosphorus Level 2.5 MG/DL Magnesium Level 2.2 MG/DL Sodium Level 140 MEQ/L Potassium Level 3.8 MEQ/L Chloride Level 108 MEQ/L Carbon Dioxide Level 23.0 MEQ/L Anion Gap 9 MEQ/L Estimat Glomerular Filtration Rate 57 ML/MIN Imaging Last Impressions Chest X-Ray 06/11/172046 Signed Impressions: Service Date/Time: Sunday, June 11, 2017 21:06 - CONCLUSION: No acute disease. Sergey Reis MD Aorta CTA 06/11/17 0000 Signed Impressions: Service Date/Time: Sunday, June 11, 2017 23:38 - CONCLUSION: 1. Normal aorta without evidence for aneurysm or dissection. 2. No evidence of pulmonary embolism to the proximal segmental level. 3. Minimal bibasilar groundglass opacities, likely atelectasis. 4. Coronary calcifications. 5. Cholelithiasis. 6. Small fat containing anterior abdominal periumbilical hernia. Patrick Montiel MD Objective Remarks GENERAL: This is a 62-year-old female currently resting in bed in no acute SKIN: Warm and dry. No rash HEAD: Normocephalic. EYES: No scleral icterus. No injection or drainage. NECK: Supple, trachea midline. No JVD or lymphadenopathy. CARDIOVASCULAR: Regular rate and rhythm without murmurs, gallops, or rubs. RESPIRATORY: Breath sounds equal bilaterally. No accessory muscle use. GASTROINTESTINAL: Abdomen soft, non-tender, nondistended. Umbilical hernia is reducible. MUSCULOSKELETAL: pain, swelling LUE warm to touch. BACK: Nontender without obvious deformity. NEURO EXAM: Cranial nerves II through XII grossly intact. Strength is equal symmetric. 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 EF 55% CTS consulted for evaluation of CABG. Recommended medical management. Continue Lopressor 12.5mg BID, ASA 162 mg daily, atorvastatin 80 mg daily and Aldactone 25 mg twice a day/home medications FEN/: Monitor renal function, I/O's, electrolytes replacement per protocol. GI: Sasha Watt tear Grade a LA esophagitis Cholelithiasis Hypoalbuminemia Advance diet as tolerated Currently on pantoprazole 40 mg by mouth daily S/P EGD 06/13: Esophagitis, Sasha Watt tear in distal esophagus Heme: Leukocytosis Monitor CBC, transfuse if Hgb <8 ID: Empirically on ceftriaxone and monitor for signs of infections (Fever, WBC) UA and CXR on admission no acute disease Endo: SSI if needed for glycemic control MSK: Elevated BMI Wt loss encouraged. GI prophylaxis- On pantoprazole DVT prophylaxis- On heparin subcutaneous Doppler US LUE :thrombus left cephalic vein. Will place on Lovenox 80mg SQ Q12 and d/c Heparin SQ Level II follow-up Awaiting transfer to floor. Rubi Marie MD Jun 17, 2017 09:29
--- NOTE | 2017-06-17 10:51 | RADRPT ---
EXAM DATE/TIME: 06/17/2017 09:50 [facility] COMPARISON: No previous studies available for comparison. INDICATIONS : Left arm swelling. MEDICAL HISTORY : Gastroesophageal reflux disease. Arthritis. Depression. Anxiety. SURGICAL HISTORY : Tonsillectomy. section. Right rotator cuff repair. Left knee surgery. Right thumb surgery. Bilateral carpal tunnel release. Scar tissue removal. ENCOUNTER: Initial ACUITY: 2 day PAIN SCORE: 4/10 LOCATION: Left arm. FINDINGS: Thrombus identified in the left cephalic vein. There is no thrombus in the deep brachial vein. CONCLUSION: Thrombus left cephalic vein. Adriano Gunter MD FACR on June 17, 2017 at 10:33 Board Certified Radiologist. This report was verified electronically.
[2017-06-17] MEDS: ENOXAPARIN SODIUM 80 MG/0.8 ML SYRINGE SQ SCH (12:43)
[2017-06-17] MEDS: ACETAMINOPHEN 325 MG TAB PO PRN (16:26)
[2017-06-17] MEDS: CHLORHEXIDINE GLUCONATE 2 % 1 PACK (2 CLOTHS) TOP SCH (22:48)
[2017-06-18] VITALS (24 sets, daily range): BP systolic 94–119; BP diastolic 56–70; PULSE 62–78; RESP 16; TEMP 98.4–99.5; O2SAT 95–99
[2017-06-18] MEDS: ENOXAPARIN SODIUM 80 MG/0.8 ML SYRINGE SQ SCH ×2 (00:16→10:53)
[2017-06-18] MEDS: ACETAMINOPHEN 325 MG TAB PO PRN ×3 (04:45→20:44)
[2017-06-18 05:49] LABS: AUTOMATED NEUTROPHIL # 9.5 TH/MM3 (1.8-7.7); BASOPHIL % 0.3 % (0.0-2.0); EOSINOPHIL # 0.3 TH/MM3 (0-0.4); HEMATOCRIT 33.2 % (35.0-46.0); HEMOGLOBIN 11.4 GM/DL (11.6-15.3); LYMPH % 19.5 % (9.0-44.0); LYMPHOCYTE # 2.8 TH/MM3 (1.0-4.8); MEAN CELL VOLUME 91.6 FL (80.0-100.0); MEAN CORPUSCULAR HEMOGLOBIN 31.3 PG (27.0-34.0); MEAN CORPUSCULAR HGB CONC 34.2 % (32.0-36.0); MEAN PLATELET VOLUME 7.6 FL (7.0-11.0); MONO % 12.3 % (0.0-8.0); MONOCYTE # 1.8 TH/MM3 (0-0.9); NEUT % 65.9 % (16.0-70.0); PLATELET COUNT 275 TH/MM3 (150-450); RED BLOOD COUNT 3.63 MIL/MM3 (4.00-5.30); RED CELL DISTRIBUTION WIDTH 13.8 % (11.6-17.2); WHITE BLOOD COUNT 14.5 TH/MM3 (4.0-11.0)
[2017-06-18 06:26] LABS: BICARBONATE 23.1 MEQ/L (21.0-32.0); CALCIUM 8.9 MG/DL (8.5-10.1); CREATININE 0.91 MG/DL (0.50-1.00); MAGNESIUM 2.3 MG/DL (1.5-2.5); PHOSPHORUS 2.9 MG/DL (2.5-4.9)
[2017-06-18] MEDS: PANTOPRAZOLE SOD 40 MG DELAYED RELEASE TAB PO SCH (08:36)
[2017-06-18] MEDS: buPROPion HCL 150 MG SUSTAINED RELEASE TAB PO SCH ×2 (08:36→20:44)
[2017-06-18] MEDS: DOCUSATE SODIUM 50 MG/SENNA 8.6 MG TAB PO SCH ×2 (08:36→20:45)
[2017-06-18] MEDS: CHOLECALCIFEROL (VIT D3) 1000 UNIT TAB PO SCH (08:36)
[2017-06-18] MEDS: ATORVASTATIN 80 MG TAB PO SCH (08:36)
[2017-06-18] MEDS: METOPROLOL TARTRATE 25 MG TAB PO SCH ×2 (08:37→20:44)
[2017-06-18] MEDS: cefTRIAXone INJ 1,000 MG in SODIUM CHLORIDE 0.9% INJ 100 ML IV SCH (08:37)
[2017-06-18] MEDS: SPIRONOLACTONE 25 MG TAB PO SCH ×2 (08:37→17:38)
[2017-06-18] MEDS: ASPIRIN EC 81 MG TABEC PO SCH (08:37)
[2017-06-18] MEDS: SODIUM CHLORIDE 0.9% FLUSH 10 ML FLUSH IV FLUSH SCH ×2 (08:37→20:45)
--- NOTE | 2017-06-18 15:43 | HHI.PR ---
Subjective Remarks f/u for ACS/3Vessel disease patient found sitting in chair. She stated that her left arm is getting better slowly. Denied any CP, SOB, palpitations, and lightheadedness/dizziness. patient stated only SOB if she walks to bathroom, but improving. Objective Vitals Vital Signs Date Time Temp Pulse Resp B/P (MAP) Pulse Ox O2 Delivery O2 Flow Rate FiO2 06/18/17 15:12 64 06/18/17 15:12 98.5 67 16 94/70 (78) 98 06/18/17 14:01 64 06/18/17 13:16 68 06/18/17 12:00 62 06/18/17 11:43 16 06/18/17 11:20 66 06/18/17 11:20 98.4 75 16 106/65 (79) 99 06/18/17 10:03 69 06/18/17 09:05 69 06/18/17 08:05 71 06/18/17 07:55 98.5 74 16 108/59 (75) 99 06/18/17 07:55 69 06/18/17 07:31 99 21 06/18/17 05:00 74 06/18/17 04:00 77 06/18/17 04:00 99.5 78 16 119/62 (81) 95 06/18/17 03:00 72 06/18/17 02:00 76 06/18/17 01:00 72 06/18/17 00:00 99.4 74 16 101/56 (71) 95 06/18/17 00:00 66 06/17/17 23:00 62 06/17/17 22:00 66 06/17/17 21:00 76 06/17/17 20:00 98.2 80 18 120/58 (78) 99 06/17/17 20:00 71 06/17/17 19:46 98 21 06/17/17 19:00 74 06/17/17 18:01 92 06/17/17 17:01 98 06/17/17 16:01 80 I/O 06/17/17 06/17/17 06/17/17 06/18/17 06/18/17 06/18/17 07:00 15:00 23:00 07:00 15:00 23:00 Intake Total 300 ml 840 ml 620 ml 100 ml Output Total 500 ml 1400 ml Balance 300 ml 340 ml -780 ml 100 ml Intake Oral 300 ml 840 ml 620 ml IV Total 100 ml Output Urine Total 500 ml 1400 ml # Voids 8 2 # Bowel Movements 0 0 1 Result Diagram: 06/18/1751206/18/17512 Objective Remarks GENERAL: in NAD CARDIOVASCULAR: Regular rate and rhythm without murmurs, gallops, or rubs. RESPIRATORY: Breath sounds equal bilaterally. No accessory muscle use. GASTROINTESTINAL: Abdomen soft, non-tender, nondistended. MUSCULOSKELETAL: + left arm indurations with some erythema. Medications and IVs Current Medications Sodium Chloride (NS Flush) 2 ml UNSCH PRN IVF FLUSH AFTER USING IV ACCESS; Start 06/11/17 at 21:00; Stop 06/12/17 at 00:45; Status DC Al Hydrox/Mg Hydrox/Simethicone (Mag-Al Plus Susp Liq) 30 ml ONCE ONCE PO Last administered on 06/11/17at 21:47; Start 06/11/17 at 21:00; Stop 06/11/17 at 21:01; Status DC Lidocaine HCl (Xylocaine 2% Viscous) 15 ml BOLUS ONCE SWISH-SWAL Last administered on 06/11/17at 21:46; Start 06/11/17 at 21:00; Stop 06/11/17 at 21:01 ; Status DC Labetalol HCl (Trandate Inj) 20 mg ONCE ONCE IV PUSH Last administered on 06/11at 22:10; Start 06/11/17 at 22:15; Stop 06/11/17 at 22:16; Status DC Morphine Sulfate (Morphine Inj) 4 mg ONCE ONCE IV PUSH Last administered on at 22:10; Start 06/11/17 at 22:15; Stop 06/11/17 at 22:16; Status DC Ondansetron HCl (Zofran Inj) 4 mg ONCE ONCE IV PUSH Last administered on at 22:17; Start 06/11/17 at 22:15; Stop 06/11/17 at 22:16; Status DC Lorazepam (Ativan Inj) 2 mg ONCE ONCE IV PUSH Last administered on 06/11/17at 22:19; Start 06/11/17 at 22:15; Stop 06/11/17 at 22:16; Status DC Nitroglycerin (Nitroglycerin 2% Oint) 1 inch ONCE ONCE TOPICAL Last administered on 06/11/17at 22:27; Start 06/11/17 at 22:30; Stop 06/11/17 at 22:31 ; Status DC Ondansetron HCl (Zofran Inj) 4 mg ONCE ONCE IV PUSH Last administered on at 23:30; Start 06/11/17 at 23:30; Stop 06/11/17 at 23:31; Status DC Pantoprazole Sodium (Protonix Inj) 40 mg ONCE ONCE IV PUSH Last administered on 06/12/17at 00:39; Start 06/11/17 at 23:45; Stop 06/11/17 at 23:46; Status DC Iohexol (Omnipaque 350 Inj) 98 ml STK-MED ONCE IVCONTRAST Last administered on 06/11/17at 20:12; Start 06/11/17 at 20:12; Stop 06/12/17 at 00:17; Status DC Bupropion HCl (Wellbutrin Sr) 150 mg BID PO Last administered on 06/18/17at 08: 36; Start 06/12/17 at 09:00 Cholecalciferol (Vitamin D3) 1,000 units DAILY PO Last administered on at 08:36; Start 06/12/17 at 09:00 Spironolactone (Aldactone) 25 mg BIDPC PO Last administered on 06/18/17at 08:37 ; Start 06/12/17 at 09:00 Non-Formulary Medication 1 cap DAILY PO ; Start 06/12/17 at 09:00; Stop at 09:00; Status DC Sodium Chloride 1,000 ml @ 75 mls/hr [id number] IV Last administered on at 16:02; Start 06/12/17 at 00:34; Stop 06/16/17 at 02:01; Status DC Sodium Chloride (NS Flush) 2 ml UNSCH PRN IV FLUSH FLUSH AFTER USING IV ACCESS ; Start 06/12/17 at 00:45 Sodium Chloride (NS Flush) 2 ml BID IV FLUSH Last administered on 06/18/17at 08: 37; Start 06/12/17 at 09:00 Acetaminophen (Tylenol) 650 mg Q6H PRN PO PAIN 1-5 AND/OR FEVER >101F Last administered on 06/18/17at 10:53; Start 06/12/17 at 00:45 Morphine Sulfate (Morphine Inj) 2 mg Q2H PRN IV PUSH PAIN SCALE 6 TO 10 Last administered on 06/12/17at 14:05; Start 06/12/17 at 00:45 Pantoprazole Sodium (Protonix Inj) 40 mg Q12H IV PUSH ; Start 06/12/17 at 01:00 ; Stop 06/12/17 at 11:59; Status DC Lorazepam (Ativan Inj) 1 mg Q1H PRN IV PUSH Agitation/Sedation Last administered on 06/12/17at 03:17; Start 06/12/17 at 00:45 Ondansetron HCl (Zofran Inj) 4 mg Q6H PRN IV PUSH NAUSEA OR VOMITING Last administered on 06/12/17at 04:09; Start 06/12/17 at 00:45 Zolpidem Tartrate (Ambien) 5 mg HS PRN PO INSOMNIA; Start 06/12/17 at 00:45 Albuterol/ Ipratropium (Duoneb Neb) 1 ampule Q2HR NEB PRN INH WHEEZING; Start 06/12/17 at 00:45; Stop 06/16/17 at 02:01; Status DC Miscellaneous Information 1 Q361D XX ; Start 06/12/17 at 00:45 Chlorhexidine Gluconate (Chlorhexidine 2% Cloth) Taper DAILY@04 TOP Last administered on 06/16/17at 04:00; Start 06/12/17 at 04:00; Stop 06/08/18 at 03:59 Chlorhexidine Gluconate (Chlorhexidine 2% Cloth) 3 pack UNSCH PRN TOP HYGIENIC CARE; Start 06/12/17 at 00:45 Senna/Docusate Sodium ([place]-Colace) 1 tab BID PO Last administered on at 08:36; Start 06/12/17 at 09:00 Magnesium Hydroxide (Milk Of Magnesia Liq) 30 ml Q12H PRN PO Mild constipation ; Start 06/12/17 at 00:45 Sennosides (Senokot) 17.2 mg Q12H PRN PO Moderate constipation; Start 06/12/17 at 00:45 Bisacodyl (Dulcolax Supp) 10 mg DAILY PRN RECTAL SEVERE CONSITIPATION; Start at 00:45 Lactulose (Lactulose Liq) 30 ml DAILY PRN PO SEVERE CONSITIPATION; Start at 00:45 Metoprolol Tartrate (Lopressor Inj) 2.5 mg Q6H IV PUSH Last administered on at 01:55; Start 06/12/17 at 00:45; Stop 06/12/17 at 10:30; Status DC Atorvastatin Calcium (Lipitor) 80 mg DAILY PO Last administered on 06/18/17at 08 :36; Start 06/12/17 at 09:00 Labetalol HCl (Trandate Inj) 10 mg Q4H PRN IV PUSH SBP>150, DBP>90; Start 06/12 at 00:45 Pantoprazole Sodium 80 mg/ Sodium Chloride 100 ml @ 10 mls/hr CONTINUOUS IV Last administered on 06/12/17at 03:17; Start 06/12/17 at 02:15; Stop 06/12/17 at 10:30; Status DC Pantoprazole Sodium 80 mg/ Sodium Chloride 35 ml @ 420 mls/hr BOLUS ONCE IV Last administered on 06/12/17at 03:17; Start 06/12/17 at 02:15; Stop 06/12/17 at 02:19; Status DC Prochlorperazine Edisylate (Compazine Inj) 10 mg STK-MED ONCE .ROUTE ; Start at 05:47; Stop 06/12/17 at 05:48; Status DC Prochlorperazine Edisylate (Compazine Inj) 5 mg Q6H PRN IV NAUSEA OR VOMITING; Start 06/12/17 at 06:15 Pantoprazole Sodium (Protonix Inj) 40 mg Q12H IV PUSH Last administered on 06/13at 13:21; Start 06/12/17 at 13:00; Stop 06/13/17 at 13:26; Status DC Heparin Sodium (Porcine) (Heparin Inj) 4,000 units ONCE ONCE IV PUSH Last administered on 06/12/17at 14:30; Start 06/12/17 at 14:30; Stop 06/12/17 at 14:31 ; Status DC Heparin Sodium (Porcine) (Heparin Inj) 5,000 units UNSCH PRN IV PUSH APTT LESS THAN 25; Start 06/12/17 at 20:15; Stop 06/14/17 at 08:57; Status DC Heparin Sodium (Porcine) (Heparin Inj) 2,500 units UNSCH PRN IV PUSH APTT 25 TO 39; Start 06/12/17 at 20:15; Stop 06/14/17 at 08:57; Status DC Heparin Sodium/ Dextrose 250 ml @ 10 mls/hr TITRATE PRN IV Coagulation Management Last administered on 06/12/17at 14:33; Start 06/12/17 at 14:30; Stop 06/14/17 at 08:56; Status DC Nitroglycerin/ Dextrose 250 ml @ 1.5 mls/hr TITRATE PRN IV Chest pain relief Last administered on 06/12/17at 14:26; Start 06/12/17 at 14:30; Stop 06/16/17 at 02:01; Status DC Aspirin (Ecotrin Ec) 162 mg DAILY PO Last administered on 06/18/17at 08:37; Start 06/13/17 at 09:00 Metoprolol Tartrate (Lopressor) 12.5 mg Q12HR PO Last administered on at 08:37; Start 06/13/17 at 09:00 Potassium Chloride 100 ml @ 50 mls/hr Q2H PRN IV For Potassium 2.8 - 3.2 mEq/L ; Start 06/13/17 at 07:45; Stop 06/18/17 at 12:50; Status DC Potassium Chloride 100 ml @ 50 mls/hr Q2H PRN IV For Potassium 2.8 - 3.2 mEq/L ; Start 06/13/17 at 07:45; Stop 06/18/17 at 12:50; Status DC Potassium Bicarb/ Potassium Chloride (K-Lyte Cl Eff) 50 meq UNSCH PRN PO For Potassium 3.3 - 3.5 mEq/L Last administered on 06/16/17at 09:19; Start 06/13/17 at 07:45; Stop 06/18/17 at 12:50; Status DC Potassium Chloride 100 ml @ 25 mls/hr UNSCH PRN IV For Potassium 3.3 - 3.5 mEq /L; Start 06/13/17 at 07:45; Stop 06/18/17 at 12:50; Status DC Potassium Chloride 100 ml @ 50 mls/hr Q2H PRN IV For Potassium 3.3 - 3.5 mEq/L ; Start 06/13/17 at 07:45; Stop 06/18/17 at 12:50; Status DC Magnesium Sulfate 4 gm/Sodium Chloride 100 ml @ 50 mls/hr UNSCH PRN IV For Magnesium 0.9 - 1.1 mg/dL; Start 06/13/17 at 07:45; Stop 06/18/17 at 12:50; Status DC Magnesium Oxide (Mag-Ox) 800 mg UNSCH PRN PO For Magnesium 1.2 - 1.6 mg/dL; Start 06/13/17 at 07:45; Stop 06/18/17 at 12:50; Status DC Magnesium Sulfate 2 gm/Sodium Chloride 100 ml @ 50 mls/hr UNSCH PRN IV For Magnesium 1.2 - 1.6 mg/dL; Start 06/13/17 at 07:45; Stop 06/18/17 at 12:50; Status DC Potassium Phosphate (K-Phos) 2,000 mg Q4H PRN PO For Phosphorus < 2.5 mg/dL; Start 06/13/17 at 07:45; Stop 06/18/17 at 12:50; Status DC Sodium Phosphate 30 mmol/Sodium Chloride 250 ml @ 42 mls/hr UNSCH PRN IV For Phosphorus < 2.5 mg/dL Last administered on 06/15/17at 13:31; Start 06/13/17 at 07:45; Stop 06/18/17 at 12:50; Status DC Potassium Phosphate (K-Phos) 2,000 mg UNSCH PRN PO/TUBE SEE LABEL COMMENTS; Start 06/13/17 at 07:45; Stop 06/18/17 at 12:50; Status DC Potassium Phosphate 30 mmol/ Sodium Chloride 260 ml @ 42 mls/hr UNSCH PRN IV SEE LABEL COMMENTS Last administered on 06/14/17at 13:35; Start 06/13/17 at 07:45 ; Stop 06/18/17 at 12:50; Status DC Miscellaneous (Pill Splitter) 1 ea UNSCH PRN OTHER SEE LABEL COMMENTS; Start at 08:00 Metoclopramide HCl (Reglan Inj) 5 mg Q8HR IV PUSH Last administered on at 21:34; Start 06/13/17 at 14:00; Stop 06/16/17 at 02:01; Status DC Pantoprazole Sodium 80 mg/ Sodium Chloride 100 ml @ 10 mls/hr Q10H IV Last administered on 06/13/17at 16:33; Start 06/13/17 at 15:00; Stop 06/14/17 at 01:30 ; Status DC Miscellaneous Information ALL NURSING DEPARTME... UNSCH PRN .XX SEE LABEL COMMENTS; Start 06/13/17 at 14:00; Stop 06/14/17 at 13:59; Status DC Sodium Chloride 1,000 ml @ 100 mls/hr Q10H IV Last administered on 06/14/17at 00:07; Start 06/13/17 at 14:14; Stop 06/14/17 at 08:57; Status DC Diphenhydramine HCl (Benadryl) 50 mg CORPORATE TAX MANAGER PO Last administered on at 06:06; Start 06/13/17 at 14:15; Stop 06/17/17 at 14:14; Status DC Diazepam (Valium) 10 mg CORPORATE TAX MANAGER PO Last administered on 06/14/17at 06:06; Start 06/13/17 at 14:15; Stop 06/17/17 at 14:14; Status DC Midazolam HCl (Versed Inj) 1 mg CORPORATE TAX MANAGER IV PUSH ; Start 06/13/17 at 14:15; Stop 06/17/17 at 14:14; Status DC Pantoprazole Sodium 80 mg/ Sodium Chloride 100 ml @ 10 mls/hr Q10H IV Last administered on 06/15/17at 18:19; Start 06/14/17 at 02:00; Stop 06/16/17 at 02:01 ; Status DC Heparin Sodium/ Sodium Chloride 1,000 ml @ As Directed STK-MED ONCE .ROUTE Last administered on 06/14/17at 07:09; Start 06/14/17 at 07:09; Stop 06/14/17 at 07:10; Status DC Midazolam HCl (Versed Inj) 2 mg STK-MED ONCE .ROUTE Last administered on at 07:29; Start 06/14/17 at 07:10; Stop 06/14/17 at 07:11; Status DC Heparin Sodium (Porcine) (Heparin Inj) 10,000 units STK-MED ONCE .ROUTE ; Start 06/14/17 at 07:11; Stop 06/14/17 at 07:12; Status DC Nitroglycerin 0 ml @ As Directed STK-MED ONCE .ROUTE ; Start 06/14/17 at 07:11; Stop 06/14/17 at 07:12; Status DC Sodium Chloride 1,000 ml @ 125 mls/hr Q8H IV Last administered on 06/14/17at 09 :30; Start 06/14/17 at 07:57; Stop 06/14/17 at 13:56; Status DC Miscellaneous Information 1 ONCE ONCE XX ; Start 06/14/17 at 08:00; Stop at 08:55; Status DC Atropine Sulfate (Atropine Inj) 0.5 mg UNSCH PRN IV VAGAL REPONSE; Start at 08:00 Sodium Chloride 250 ml @ 0 mls/hr UNSCH X1 PRN IV VAGAL REPONSE; Start at 08:00; Stop 06/14/17 at 23:00; Status DC Lidocaine HCl (Xylocaine-Mpf 1% Inj) 10 ml STK-MED ONCE OTHER ; Start 06/13/17 at 12:00; Stop 06/14/17 at 08:32; Status DC Phenylephrine HCl (Neosynephrine/ NS 1000 Mcg/10ml Syr) 1,000 mcg STK-MED ONCE IV ; Start 06/13/17 at 12:00; Stop 06/14/17 at 08:32; Status DC Ephedrine Sulfate (ePHEDrine/NS 25 MG/5 ML SYR) 25 mg STK-MED ONCE IV ; Start at 12:00; Stop 06/14/17 at 08:32; Status DC Succinylcholine Chloride (Quelicin Inj) 200 mg STK-MED ONCE IV ; Start 06/13/17 at 12:00; Stop 06/14/17 at 08:32; Status DC Propofol (Diprivan 200 Mg/20 ml Inj) 400 mg STK-MED ONCE IV ; Start 06/13/17 at 12:00; Stop 06/14/17 at 08:32; Status DC Ceftriaxone Sodium 1000 mg/ Sodium Chloride 100 ml @ 200 mls/hr Q24H IV Last administered on 06/18/17at 08:37; Start 06/14/17 at 09:00; Stop 06/18/17 at 12:49 ; Status DC Iohexol (OMNIPAQUE 350 INJ (Trim Machine Adjuster)) 100 ml STK-MED ONCE OTHER ; Start at 08:57; Stop 06/14/17 at 08:58; Status DC Iohexol (OMNIPAQUE 350 INJ (Trim Machine Adjuster)) 50 ml STK-MED ONCE OTHER ; Start at 08:57; Stop 06/14/17 at 08:58; Status DC Iohexol (OMNIPAQUE 350 INJ (Trim Machine Adjuster)) 100 ml STK-MED ONCE OTHER ; Start at 09:05; Stop 06/14/17 at 09:05; Status DC Pantoprazole Sodium (Protonix) 40 mg DAILY PO Last administered on 06/18/17at 08 :36; Start 06/16/17 at 09:00 Heparin Sodium (Porcine) (Heparin Inj) 5,000 units Q8HR SQ Last administered on 06/17/17at 06:46; Start 06/16/17 at 06:00; Stop 06/17/17 at 11:13; Status DC Potassium Chloride (KCl) 30 meq ONCE ONCE PO ; Start 06/16/17 at 16:45; Stop at 16:46; Status DC Enoxaparin Sodium (Lovenox Inj) 80 mg Q12H SQ Last administered on 06/18/17at 10 :53; Start 06/17/17 at 12:00 A/P Assessment and Plan 62 y/o with CP Depression/anxiety Continue bupropion 150 mg by mouth twice a day Acetaminophen 650 mg by mouth every 6 hours when necessary pain 1-5/fever Awake and alert ACS 3V CAD Hypertension dyslipidemia Monitor HR and BP keep MAP>65mmHg Monitor trop, echo showed EF 50-55%, S/p cardiac 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 EF 55% CTS consulted for evaluation of CABG. Recommended medical management. Continue Lopressor 12.5mg BID, ASA 162 mg daily, atorvastatin 80 mg daily and Aldactone 25 mg twice a day/home medications Sasha Watt tear Grade a LA esophagitis Cholelithiasis Hypoalbuminemia Advance diet as tolerated Currently on pantoprazole 40 mg by mouth daily S/P EGD 06/13: Esophagitis, Sasha Watt tear in distal esophagus Leukocytosis no signs of infection. d/c rocephin UA and CXR on admission no acute diseass Elevated BMI Wt loss encouraged. Doppler US LUE :thrombus left cephalic vein extensive. patient was placed on Lovenox 80mg SQ Q12. there is some erythema which most likely due to clot, but will cover for possible skin infection with doxycycline. will switch to eliquis and d./c lovenox. Risa Holt MD Jun 18, 2017 15:43
[2017-06-18] MEDS: DOXYCYCLINE HYCLATE 100 MG CAP PO SCH (20:44)
[2017-06-18] MEDS: APIXABAN 5 MG TABLET PO SCH (21:55)
[2017-06-19] VITALS (12 sets, daily range): BP systolic 111–113; BP diastolic 60–64; PULSE 68–88; RESP 16; TEMP 98.8–99; O2SAT 96–98
[2017-06-19] MEDS: CHLORHEXIDINE GLUCONATE 2 % 1 PACK (2 CLOTHS) TOP SCH (03:08)
[2017-06-19 04:12] LABS: HEMATOCRIT 33.5 % (35.0-46.0); HEMOGLOBIN 11.3 GM/DL (11.6-15.3); MEAN CELL VOLUME 92.3 FL (80.0-100.0); MEAN CORPUSCULAR HEMOGLOBIN 31.2 PG (27.0-34.0); MEAN CORPUSCULAR HGB CONC 33.8 % (32.0-36.0); MEAN PLATELET VOLUME 7.5 FL (7.0-11.0); PLATELET COUNT 300 TH/MM3 (150-450); RED BLOOD COUNT 3.63 MIL/MM3 (4.00-5.30); RED CELL DISTRIBUTION WIDTH 13.6 % (11.6-17.2); WHITE BLOOD COUNT 13.5 TH/MM3 (4.0-11.0)
[2017-06-19 04:37] LABS: BICARBONATE 24.8 MEQ/L (21.0-32.0); CALCIUM 8.5 MG/DL (8.5-10.1); CREATININE 0.9 MG/DL (0.50-1.00)
[2017-06-19] MEDS: ATORVASTATIN 80 MG TAB PO SCH (08:09)
[2017-06-19] MEDS: METOPROLOL TARTRATE 25 MG TAB PO SCH (08:09)
[2017-06-19] MEDS: SPIRONOLACTONE 25 MG TAB PO SCH (08:10)
[2017-06-19] MEDS: DOXYCYCLINE HYCLATE 100 MG CAP PO SCH (08:10)
[2017-06-19] MEDS: CHOLECALCIFEROL (VIT D3) 1000 UNIT TAB PO SCH (08:10)
[2017-06-19] MEDS: DOCUSATE SODIUM 50 MG/SENNA 8.6 MG TAB PO SCH (08:10)
[2017-06-19] MEDS: ASPIRIN EC 81 MG TABEC PO SCH (08:10)
[2017-06-19] MEDS: PANTOPRAZOLE SOD 40 MG DELAYED RELEASE TAB PO SCH (08:10)
[2017-06-19] MEDS: buPROPion HCL 150 MG SUSTAINED RELEASE TAB PO SCH (08:10)
[2017-06-19] MEDS: SODIUM CHLORIDE 0.9% FLUSH 10 ML FLUSH IV FLUSH SCH (08:11)
[2017-06-19] MEDS ORDERED: ATOR80TA45 PO (09:21)
[2017-06-19] MEDS ORDERED: ECASA81 PO (09:21)
[2017-06-19] MEDS ORDERED: DOXY100C PO (09:21)
[2017-06-19] MEDS ORDERED: APIX5TAB PO (09:21)
[2017-06-19] MEDS ORDERED: METO25TA3 PO (09:21)
[2017-06-19] MEDS ORDERED: PANT40TA3 PO (09:21)
--- NOTE | 2017-06-19 09:25 | HHI.DS ---
Discharge Summary Admission Date Jun 12, 2017 at 00:16 Admitting Diagnosis Acute FL, hemoptysis Brief History - From Admission 62-year-old female with no history significant of coronary artery disease presents with chest pain, per patient initially the elephant was sitting on her chest without radiation, later in the emergency department where she felt improving, she developed sudden onset of crushing chest pain radiating to her shoulders, she became diaphoretic, pale and hypotensive. The EKG shows diffuse ST elevations and the education and training coordinator solution consultant was notified for STEMI alert. She was treated with morphine, Ativan, nitroglycerin, beta mary ellen with improvement of her symptoms. However shortly after she vomited about half cup of fresh bright red blood. The education and training coordinator on-call canceled a STEMI alert and patient is admitted to ICU with conservative management. CBC/BMP: 06/19/17 0345 06/19/17 0345 Significant Findings Laboratory Tests Test 06/17/17 05:32 06/18/17 05:13 06/19/17 03:45 White Blood Count 14.7 TH/MM3 (4.0-11.0) 14.5 TH/MM3 (4.0-11.0) 13.5 TH/MM3 (4.0-11.0) Red Blood Count 3.89 MIL/MM3 (4.00-5.30) 3.63 MIL/MM3 (4.00-5.30) 3.63 MIL/MM3 (4.00-5.30) Calcium Level 8.3 MG/DL (8.5-10.1) Chloride Level 108 MEQ/L (98-107) 109 MEQ/L (98-107) Estimat Glomerular Filtration Rate 57 ML/MIN (>89) 63 ML/MIN (>89) 64 ML/MIN (>89) Hemoglobin 11.4 GM/DL (11.6-15.3) 11.3 GM/DL (11.6-15.3) Hematocrit 33.2 % (35.0-46.0) 33.5 % (35.0-46.0) Monocytes (%) (Auto) 12.3 % (0.0-8.0) Neutrophils # (Auto) 9.5 TH/MM3 (1.8-7.7) Monocytes # (Auto) 1.8 TH/MM3 (0-0.9) PE at Discharge GENERAL: in NAD CARDIOVASCULAR: Regular rate and rhythm without murmurs, gallops, or rubs. RESPIRATORY: Breath sounds equal bilaterally. No accessory muscle use. GASTROINTESTINAL: Abdomen soft, non-tender, nondistended. MUSCULOSKELETAL: + left arm indurations with some erythema. Pt Condition on Discharge: Stable Discharge Disposition: Discharge Home Discharge Instructions DIET: Follow Instructions for: Heart Healthy Diet Activities you can perform: See Additionl Instruction Other Activity Instructions: as directed by your education and training coordinator Risa Holt MD Jun 19, 2017 09:25
--- NOTE | 2017-06-19 09:25 | HHI.DCPOC ---
Discharge Care Plan Diagnosis: (1) Thrombosis (2) ST elevation myocardial infarction (STEMI) of inferior wall (3) CAD (coronary artery disease) Goals to Promote Your Health * To prevent worsening of your condition and complications * To maintain your health at the optimal level Directions to Meet Your Goals Take your medications as prescribed Follow your dietary instruction Follow activity as directed Keep your appointments as scheduled Take your immunizations and boosters as scheduled If your symptoms worsen call your PCP, if no PCP go to Urgent Care Center or Emergency Room Smoking is Dangerous to Your Health. Avoid second hand smoke Call the 24-hour hour crisis hotline for domestic abuse at Risa Holt MD Jun 19, 2017 09:25
[2017-06-19] MEDS: APIXABAN 5 MG TABLET PO SCH (09:41)
== END 2017-06-19 10:15 | disposition home or self-care (01) | DRG 368 ==
LOC: NEPC 20:11 → NEDA 06-12 00:16 → HIMN 06-12 03:00 → HCPC 06-17 11:10
PROVIDERS: ADMIT Family Medicine; ATTEND Family Medicine
PROC: 0DJ08ZZ Inspection of Upper Intestinal Tract, Via Natural or Artificial Opening Endoscopic (ICD-10-PCS; 2017-06-13)
PROC: B2111ZZ Fluoroscopy of Multiple Coronary Arteries using Low Osmolar Contrast (ICD-10-PCS; 2017-06-14)
PROC: B2151ZZ Fluoroscopy of Left Heart using Low Osmolar Contrast (ICD-10-PCS; 2017-06-14)
PROC: 4A023N7 Measurement of Cardiac Sampling and Pressure, Left Heart, Percutaneous Approach (ICD-10-PCS; principal; 2017-06-14 07:15)
DX: K22.6 Gastro-esophageal laceration-hemorrhage syndrome (principal); I21.19 ST elevation (STEMI) myocardial infarction involving other coronary artery of inferior wall; I82.612 Acute embolism and thrombosis of superficial veins of left upper extremity; E88.09 Other disorders of plasma-protein metabolism, not elsewhere classified; E83.39 Other disorders of phosphorus metabolism; F32.9 Major depressive disorder, single episode, unspecified; I25.10 Atherosclerotic heart disease of native coronary artery without angina pectoris; F41.9 Anxiety disorder, unspecified; E78.5 Hyperlipidemia, unspecified; D64.9 Anemia, unspecified; I10 Essential (primary) hypertension; K20.9 Esophagitis, unspecified; K80.20 Calculus of gallbladder without cholecystitis without obstruction; Z87.891 Personal history of nicotine dependence
CPT/HCPCS: 71045; 71275; 74174; 80048; 80053; 81001; 82550; 82552; 83690; 83735; 83880; 84100; 84132; 84484; 85025; 85027; 85379; 85610; 85730; 87641; 93005; 93306; 93458; 93567; 93971; 94150; 99152; 99153; C1760; C1769; C1893; C9113; G0269; J0330; J0696; J0780; J1644; J1650; J2060; J2250; J2270; J2370; J2405; J2765; J7030; J7050; Q0163; Q9967